=== PATIENT | female | born 1980 ===

== ENCOUNTER 2021-04-07 08:29 | Outpatient (REF) | payer OTHER, SELFPAY ==
[2021-04-07 09:39] LABS: MANUAL DIFF FLAG NO
[2021-04-07 09:55] LABS: Basophils Percent Auto 0.4 % (0-2); Eosinophils Absolute Auto 0.1 X10*3/uL (0.0-0.4); Eosinophils Percent Auto 1.5 % (0-4); Hematocrit 36.2 % (37-47); Hemoglobin 12.2 g/dl (12.0-16.0); Imm Gran Abs Auto 0.02 X10*3/uL (0.00-0.03); Imm Gran Pct Auto 0.4 % (0.0-0.4); Lymphocytes Absolute Auto 1.7 X10*3/uL (1.2-4.9); Lymphocytes Percent Auto 31.6 % (20-40); Mean Corpuscular HGB Conc 33.7 g/dl (31.0-35.0); Mean Corpuscular Hemoglobin 30.3 pg (27.0-33.0); Mean Platelet Volume 10.2 fL (9.4-12.3); Monocytes Absolute Auto 0.7 X10*3/uL (0.1-1.2); Monocytes Percent Auto 12.2 % (2-11); Neutrophils Absolute Auto 2.9 X10*3/uL (2.0-8.3); Neutrophils Percent Auto 53.9 % (45-73); Platelet Count 267 X10*3/uL (160-400); Red Blood Count 4.02 X10*6/uL (4.20-5.50); Red Cell Distribution Width 13.2 % (11.0-16.0); White Blood Count 5.3 X10*3/uL (4.8-10.8)
[2021-04-07 10:22] LABS: Cholesterol 232 mg/dL; HDL Cholesterol 49 mg/dL; LDL Cholesterol Calculated 147 mg/dl; Triglycerides 181 mg/dL
[2021-04-08 04:31] LABS: SARS COV2 IgG Positive (Negative)
[2021-04-11 14:02] LABS: Vitamin D 25-OH, D2 <4 ng/mL; Vitamin D 25-OH, D3 42 ng/mL; Vitamin D 25-OH, Total 42 ng/mL (30-100)
== END 2021-04-07 08:30 | disposition home or self-care (01) ==
LOC: HO.LAB 08:29
PROVIDERS: PCP Internal Medicine; Visit Provider Internal Medicine
DX: Z20.822 Contact with and (suspected) exposure to COVID-19 (principal); E78.5 Hyperlipidemia, unspecified; E55.9 Vitamin D deficiency, unspecified; D64.9 Anemia, unspecified; L65.9 Nonscarring hair loss, unspecified
CPT/HCPCS: 36415; 80061; 82306; 84443; 85025; 86769

== ENCOUNTER → 2021-05-12 09:11 | Outpatient (BNVA) | payer OTHER, SELFPAY | PROVIDERS: PCP Internal Medicine; Visit Provider Advanced Practice Midwife ==

== ENCOUNTER 2021-12-15 08:37 | Outpatient (REF) | payer OTHER, SELFPAY ==
[2021-12-15 09:59] LABS: Alanine Aminotransferase 17 U/L (0-31); Albumin Level 4.2 g/dL (3.5-5.0); Alkaline Phosphatase 51 U/L (39-117); Anion Gap 13 (12-20); Aspartate Amino Transferase 14 U/L (5-31); Bilirubin Total 0.5 mg/dL (0.0-1.0); Blood Urea Nitrogen 14 mg/dL (9-16); Calcium 10.1 mg/dL (8.4-10.2); Carbon Dioxide 26 mmol/L (22-29); Chloride 106 mmol/L (96-108); Cholesterol 200 mg/dL; Estimated Glomerular Filt Rate > 60; Glucose Fasting 88 mg/dL (60-99); HDL Cholesterol 44 mg/dL; LDL Cholesterol Calculated 127 mg/dl; Potassium 4.6 mmol/L (3.3-5.1); Sodium 140 mmol/L (135-145); Total Protein 7.2 g/dL (6.5-8.0); Triglycerides 149 mg/dL
[2021-12-15 10:09] LABS: Rheumatoid Factor < 15.0 IU/mL (<15.0)
[2021-12-15 10:21] LABS: Erythrocyte Sedimentation Rate 18 MM/HR (0-20)
[2021-12-16 15:47] LABS: Cyclic Citrullinated Peptide <16 UNITS
[2021-12-16 22:51] LABS: Anti DNA DS Antibody <1 IU/mL
== END 2021-12-15 08:38 | disposition home or self-care (01) ==
LOC: HO.LAB 08:37
PROVIDERS: PCP Internal Medicine; Visit Provider Internal Medicine
DX: M25.50 Pain in unspecified joint (principal); E11.9 Type 2 diabetes mellitus without complications; E78.5 Hyperlipidemia, unspecified
CPT/HCPCS: 36415; 80053; 80061; 85652; 86200; 86225; 86431

== ENCOUNTER → 2021-12-27 11:19 | Outpatient (REF) | payer OTHER, SELFPAY ==
--- NOTE | 2021-12-27 11:26 | ECG_ITS ---
Test Reason : TACHYCARDIA Blood Pressure : / mmHG Vent. Rate : 071 BPM Atrial Rate : 071 BPM P-R Int : 122 ms QRS Dur : 092 ms QT Int : 408 ms P-R-T Axes : -08 022 018 degrees QTc Int : 443 ms Normal sinus rhythm Normal ECG When compared to the previous EKG of No significant changes seen Referred By: Micaela Rodriges Electronically Signed By:Gaudencio Hand
== END ==
LOC: HO.CARD 11:19
PROVIDERS: PCP Internal Medicine; Visit Provider Internal Medicine
DX: R00.0 Tachycardia, unspecified (principal)
CPT/HCPCS: 93005

== ENCOUNTER → 2022-03-14 10:30 | Outpatient (BNVA) | payer OTHER, SELFPAY | PROVIDERS: PCP Internal Medicine; Visit Provider Internal Medicine Rheumatology | DX: M25.50 Pain in unspecified joint (principal); M79.7 Fibromyalgia; R22.1 Localized swelling, mass and lump, neck | CPT/HCPCS: 99202 ==

== ENCOUNTER 2022-04-08 08:33 | Outpatient (REF) | payer OTHER, SELFPAY ==
[2022-04-08 09:12] LABS: MANUAL DIFF FLAG NO
[2022-04-08 09:46] LABS: Basophils Percent Auto 0.3 % (0-2); Eosinophils Absolute Auto 0.1 X10*3/uL (0.0-0.4); Hematocrit 34.2 % (37.0-47.0); Hemoglobin 11.3 g/dl (12.0-16.0); Imm Gran Abs Auto 0.02 X10*3/uL (0.00-0.03); Imm Gran Pct Auto 0.3 % (0.0-0.4); Lymphocytes Absolute Auto 1.5 X10*3/uL (1.2-4.9); Lymphocytes Percent Auto 25.6 % (20-40); Mean Corpuscular Hemoglobin 29.1 pg (27.0-33.0); Mean Corpuscular Volume 88.1 fL (80.0-98.0); Mean Platelet Volume 9.4 fL (9.4-12.3); Monocytes Absolute Auto 0.5 X10*3/uL (0.1-1.2); Neutrophils Absolute Auto 3.7 x10*3/uL (2.0-8.3); Neutrophils Percent Auto 64.8 % (45-73); Platelet Count 270 X10*3/uL (160-400); Red Blood Count 3.88 X10*6/uL (4.20-5.50); Red Cell Distribution Width 12.4 % (11.0-16.0); White Blood Count 5.8 X10*3/uL (4.8-10.8)
[2022-04-08 10:29] LABS: Alanine Aminotransferase 17 U/L (0-31); Albumin Level 4.2 g/dL (3.5-5.0); Alkaline Phosphatase 50 U/L (39-117); Anion Gap 13 (12-20); Aspartate Amino Transferase 16 U/L (5-31); Bilirubin Total 0.7 mg/dL (0.0-1.0); Blood Urea Nitrogen 12 mg/dL (9-16); C Reactive Protein 0.39 mg/dL (< or = 0.50); Calcium 9.1 mg/dL (8.4-10.2); Carbon Dioxide 23 mmol/L (22-29); Chloride 108 mmol/L (96-108); Cholesterol 208 mg/dL; Estimated Glomerular Filt Rate > 60; Glucose Fasting 105 mg/dL (60-99); HDL Cholesterol 36 mg/dL; LDL Cholesterol Calculated 156 mg/dl; Potassium 4.7 mmol/L (3.3-5.1); Sodium 139 mmol/L (135-145); Total Protein 7.2 g/dL (6.5-8.0); Triglycerides 84 mg/dL
[2022-04-08 10:31] LABS: Erythrocyte Sedimentation Rate 19 MM/HR (0-20)
[2022-04-08 10:40] LABS: Vitamin D 25-OH Total 36.2 ng/mL (>30)
[2022-04-08 11:10] LABS: Creatinine Urine 140.13 mg/dL; Microalbum/Creatinine Ratio Ur 114.1 ug/mg cr
[2022-04-12 08:51] LABS: Anti Nuclear Antibody Screen NEGATIVE (NEGATIVE)
== END 2022-04-08 08:34 | disposition home or self-care (01) ==
LOC: HO.LAB 08:33
PROVIDERS: Absent Provider Internal Medicine; PCP Internal Medicine; Visit Provider Internal Medicine Rheumatology
DX: E11.9 Type 2 diabetes mellitus without complications (principal); E55.9 Vitamin D deficiency, unspecified; E78.5 Hyperlipidemia, unspecified; M25.50 Pain in unspecified joint; M79.7 Fibromyalgia; R22.1 Localized swelling, mass and lump, neck
CPT/HCPCS: 36415; 80053; 80061; 82043; 82306; 84443; 85025; 85652; 86038; 86039; 86140

== ENCOUNTER 2022-04-28 08:21 | Outpatient (REF) | payer OTHER, SELFPAY ==
--- NOTE | ~2022-04-28 | US_ITS ---
EXAMINATION: US THYROID CLINICAL INFORMATION: Localized swelling, mass and lump, neck. COMPARISON: No similar priors. TECHNIQUE: Linear transducer grayscale and color Doppler examination with attention to the region of the thyroid. FINDINGS: SIZE: Measurements of the thyroid lobes and nodules are given in sagittal, anteroposterior and transverse dimensions respectively. Right Thyroid Lobe: 5.1 x 1.2 x 1.6 cm, volume 5.0 mL. Parenchyma: The gland echotexture is homogeneous. Thyroid vascularity is normal. Left Thyroid Lobe: 4.7 x 1.1 x 1.6 cm, volume 4.4 mL. Parenchyma: The gland echotexture is homogeneous. Thyroid vascularity is normal. Isthmus: 0.1 cm in maximum AP dimension. No focal thyroid nodule is seen. NODES: No lymphadenopathy is seen in the tissue surrounding the thyroid gland. US/US thyroid IMPRESSION: Normal sonographic evaluation of the thyroid.
== END 2022-04-28 08:22 | disposition home or self-care (01) ==
LOC: HO.US 08:21
PROVIDERS: PCP Internal Medicine; Visit Provider Internal Medicine Rheumatology
DX: R22.1 Localized swelling, mass and lump, neck (principal)
CPT/HCPCS: 76536

== ENCOUNTER → 2022-07-14 09:55 | Outpatient (BNVA) | payer OTHER, SELFPAY | PROVIDERS: PCP Internal Medicine; Visit Provider Internal Medicine Rheumatology | DX: M79.7 Fibromyalgia (principal); M25.512 Pain in left shoulder | CPT/HCPCS: 99212 ==

== ENCOUNTER 2022-07-25 09:55 | Outpatient (REF) | payer OTHER, SELFPAY ==
--- NOTE | ~2022-07-25 | XR_ITS ---
EXAMINATION: XR SHOULDER, LEFT CLINICAL INFORMATION: Pain COMPARISON: None TECHNIQUE: AP external rotation, Grashey, scapular Y, and axillary views of the left shoulder. FINDINGS: Bone alignment is normal. No fracture or dislocation. Normal joint spaces. Well-corticated soft tissue ossification inferior to the glenohumeral joint. XR/XR shoulder LT min 2V IMPRESSION: Well-corticated soft tissue ossification inferior to the glenohumeral joint.
== END 2022-07-25 09:56 | disposition home or self-care (01) ==
LOC: HO.XRAY 09:55
PROVIDERS: PCP Internal Medicine; Visit Provider Internal Medicine Rheumatology
DX: M25.512 Pain in left shoulder (principal)
CPT/HCPCS: 73030

== ENCOUNTER 2022-08-30 09:00 | Outpatient (RCR) | payer OTHER, SELFPAY ==
--- NOTE | 2022-08-12 09:53 | MHC.PT.EP ---
[facility] [place] Office [place] Office [place] Office [address] [phone] F: [phone] F: [phone] F: [phone] F: [phone] Physical Therapy Plan of Care Date of Evaluation: Date of Surgery: NA Diagnosis: Other shoulder lesions, L shoulder tendonitis of L rotator cuff Assessment: Rosibel is a 42 year old female who is referred to PT for Other shoulder lesions, L shoulder tendonitis of L rotator cuff . She reports of having sudden onset of pain in her L UE about 2 months back. She denies having any trauma or falls. Her symptoms have been about the same. On PT examination she presented with 7/10 pain at rest and 9/10 painwith movements, TTP over L UT and anterior/ posterior joint line, decreased cervical ROM, pain with all shoulder motions, decreased strength of shoulder and scap muscles and altered posture. She is independent with ADLS however has pain with and has to take frequent rest breaks. She also has pain with sleeping. She would benefit from skilled PT to address the aforementioned impairments and improve tolerance to functional activities. Frequency and Duration: The patient will be seen 2/week for 5 weeks Short Term Goals: 1. Pt will have 50% decrease in pain which will enable her to sleep through the night in 2 weeks. 2. Pt will be able to move her shoulder through full plane of motion without pain which will enable her to dress her upper body without restrictions in 3 weeks. 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 Pt will demonstrate an increase in muscle strength by 1 grade and present with centralized symptoms which will enable her to perform IADLS without pain in 5 weeks. 2. Pt will be independent with [facility] for symptom management and maintenance following d/c in 5 weeks. Treatment Plan: Modalities to reduce pain, spasms and effusion. Manual therapy to restore motion and function. Therapeutic exercise to improve strength and flexibility. Neuromuscular re-education for posture and balance. Therapeutic activities to return to functional activities of daily living. Electronically signed by: Mariela Portillo PT DPT Please sign and return to therapist. Thank you for your referral.
== END 2022-10-18 10:49 | disposition home or self-care (01) ==
LOC: HO.PT 09:00
PROVIDERS: Visit Provider Internal Medicine Rheumatology
DX: M75.82 Other shoulder lesions, left shoulder (principal)
CPT/HCPCS: 97110; 97112; 97161

== ENCOUNTER → 2022-12-14 10:43 | Outpatient (BNVA) | payer OTHER, SELFPAY | PROVIDERS: PCP Internal Medicine; Visit Provider Internal Medicine Rheumatology | DX: M25.552 Pain in left hip (principal); M79.7 Fibromyalgia | CPT/HCPCS: 99212 ==

== ENCOUNTER 2022-12-23 09:23 | Outpatient (REF) | payer OTHER, SELFPAY ==
--- NOTE | ~2022-12-23 | XR_ITS ---
EXAMINATION: XR HIP, LEFT CLINICAL INFORMATION: Pain. COMPARISON: None available. TECHNIQUE: AP and frog-leg lateral views of the left hip. FINDINGS: Bones and soft tissues are normal. No fracture. Alignment is anatomic. Hip joint space is maintained. XR/XR hip LT min 2V IMPRESSION: Normal left hip.
== END 2022-12-23 09:24 | disposition home or self-care (01) ==
LOC: HO.XRAY 09:23
PROVIDERS: PCP Internal Medicine; Visit Provider Internal Medicine Rheumatology
DX: M25.552 Pain in left hip (principal)
CPT/HCPCS: 73502

== ENCOUNTER → 2023-01-12 10:20 | Outpatient (BNVA) | payer OTHER, SELFPAY | PROVIDERS: PCP Internal Medicine; Visit Provider Orthopaedic Surgery | DX: M25.552 Pain in left hip (principal) | CPT/HCPCS: 99202 ==

== ENCOUNTER 2023-05-18 07:51 | Outpatient (REF) | payer OTHER, SELFPAY ==
--- NOTE | ~2023-05-18 | MM_ITS ---
EXAMINATION: MM SCREENING DIGITAL BREAST TOMOSYNTHESIS, BILATERAL CLINICAL INFORMATION: Screening. Asymptomatic. COMPARISON: Mammography: 04/06/2018. TECHNIQUE: Digital breast tomosynthesis is performed in both the craniocaudal and mediolateral oblique views along with computer-aided detection (CAD). Synthesized 2D images are generated from the tomosynthesis. FINDINGS: There are scattered areas of fibroglandular density (ACR BI-RADS breast composition Category b). There are no suspicious masses, suspicious grouped calcifications, or areas of architectural distortion. The parenchymal pattern is stable from prior exams. MM/MM tomosynthesis screening BI IMPRESSION: No mammographic evidence of malignancy. ASSESSMENT: BI-RADS BI-RADS 1 - Negative RECOMMENDATION: Routine annual mammography screening. 1 year F/U This examination should not preclude the clinical evaluation of a suspicious palpable abnormality. This patient's information was entered into a reminder system with a target due date for their next mammogram.
== END 2023-05-18 07:52 | disposition home or self-care (01) ==
LOC: HO.MAMMO 07:51
PROVIDERS: PCP Internal Medicine; Visit Provider Internal Medicine
DX: Z12.31 Encounter for screening mammogram for malignant neoplasm of breast (principal)
CPT/HCPCS: 77063; 77067

== ENCOUNTER → 2023-05-18 08:15 | Outpatient (BNV) | payer OTHER, SELFPAY | PROVIDERS: PCP Internal Medicine; Visit Provider Radiology Diagnostic Radiology | DX: Z12.31 Encounter for screening mammogram for malignant neoplasm of breast (principal) | CPT/HCPCS: 77063; 77067 ==

== ENCOUNTER 2023-06-01 07:53 | Outpatient (AMB) | payer OTHER, SELFPAY ==
--- NOTE | 2023-06-01 07:56 | MHC.OFFVIS ---
Intake Vital Signs 06/01/23 07:57 Height 5 ft 3 in Weight 151 lb 10.848 oz BMI 26.9 BP 118/80 Blood Pressure Location Lt brachial Position Sitting Pulse 60 Pulse Source Pulse Oximeter Temp 97.4 F Temp Source Skin Pulse Oximetry (%) 98 Oxygen Delivery Method Room Air Intake Visit Reasons: fm Intake Note: Here for fibromyalgia flare. c/o difficulty sleeping due to jose roberto shoulder blade pain and inflammation x 2 months Business Coordinator Required: No Accompanied by: Self / Same As Patient Allergies No Known Allergies [No Known Allergies*] Allergy (Verified 06/01/23 08:00) HPI HPI Comments History of Present Illness Details The patient returns today for evaluation of her fibromyalgia. She also has bipolar disorder. She says she remains on Abilify 10 mg daily, BuSpar 5 mg daily, duloxetine 20 mg daily, ibuprofen 200 q.6 p.r.n., lamotrigine 150 daily and she takes gabapentin 1 or 2 tablets in the evenings. In general her overall pains continue. There has been no joint swelling. More recently she has been bothered by posterior shoulder pain. 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 She does get this discomfort in the posterior shoulder region at night. It does seem to be helped by some ibuprofen. There has been no previous injury, surgery, or injections on the shoulders. She has some blood work pending from her primary doctor occluding CBC and TSH. [facility] Medical History (Updated 06/01/23 @ 08:36 by Jesus Patel MD) Bipolar 1 disorder Depression with anxiety Diabetes mellitus Dyslipidemia Fibromyalgia Hair loss Hand pain Polyarthralgia Polyarthralgia Tachycardia Surgical History History of section History of tubal ligation Family History Father Diabetes Heart disease Mother Diabetes Hypertension Paternal Grandmother No problems noted. 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 Negative for appetite change, weight change, fever, chills, malaise Card Details: Negative chest pain, edema and syncope Resp Details: Negative for SOB, cough and wheezing GI Details: Negative indigestion/heartburn, nausea, abdominal pain, bowel changes, diarrhea, constipation and bloody stool. Neuro Details: Negative for epilepsy, palsy, stroke, changes in speech, tingling and weakness Psych Details: Negative for anxiety, depression and stress Aly/Lymph Details: Negative for excessive bruising or bleeding. Physical Exam Vital Signs: Last Vital Signs Temp 97.4 F 06/01/23 07:57 Pulse 60 06/01/23 07:57 BP 118/80 06/01/23 07:57 Pulse Ox 98 06/01/23 07:57 Oxygen Delivery Method Room Air 06/01/23 07:57 BMI result Body Mass Index 26.9 APPEARANCE: Patient in no acute distress EYES no redness, pupils equal and reactive to light, eyelids normal EXTREMITIES: No edema, no calf tenderness, normal peripheral pulses. NEURO: Oriented and alert x3. No focal weakness. Reflexes symmetric. Gait normal. JOINT EXAM: Cervical Spine:.? Full range of motion without pain; mild posterior cervical muscle tenderness. Thoracic Spine:.? No scoliosis.? No tenderness on palpation. Lumbar Spine:.? Alignment normal.? Mild pain with extremes of range of motion.? No the tenderness. Chest Wall:.? No tenderness, swelling, increased warmth or erythema. Hands:.? Normal pain-free range of motion with slight tenderness across the 2nd through 4th PIP joints without swelling.? Other joints have no tenderness, swelling, increased warmth or erythema. Wrists:.? Normal pain-free range of motion without tenderness, swelling, increased warmth or erythema. Elbows:.? Left: Slight pain with extremes of range of motion.? There seems to be slight lateral the epicondylar tenderness but no tenderness over the joint space.? No swelling.? Right: Normal pain-free range of motion with some slight lateral epicondylar tenderness.? No swelling or tenderness over the joint space. Shoulders:.? Left:? Mild discomfort with abduction at 160 degrees or with extremes of internal or external rotation.? The discomfort is felt posteriorly. That area posteriorly is minimally tender. There is no swelling, abductor weakness or adenopathy.? Right:? Full range of motion with mild discomfort at the extremes of motion.? Again the discomfort is felt posteriorly. No tenderness. No adenopathy, weakness, swelling, increased warmth or erythema. Hips:? Left:? Normal pain-free range of motion. I do not feel any swelling or adenopathy in the groin.? Right:? Full range of motion without pain. Hip bursa:.? Mild trochanteric tenderness. Knees:.?? Normal pain-free range of motion without tenderness, swelling, increased warmth or erythema.? There is no effusion or crepitation Ankles:.? Normal pain-free range of motion without tenderness, swelling, increased warmth or erythema. Feet:.? Normal pain-free range of motion with mild tenderness but no swelling, increased warmth or erythema. Tender points:.mild tenderness to digital palpation at the? trapezius, second rib, lateral epicondyle, knees, greater trochanter area bilaterally. ??? Results Reviewed Results Reviewed: [address] [address] XRay Report Signed Patient: Rosibel Stout MR#: [id number] : 1980 Acct:[id number] Age/Sex: 42 / F ADM Date: 12/23/22 Loc: HO.XRAY Attending Dr: Jesus Patel MD Ordering Physician: Jesus Patel MD Date of Service: 12/23/22 Procedure(s): XR hip LT min 2V Accession Number(s): [id number] cc: Jesus Patel MD~ EXAMINATION: XR HIP, LEFT CLINICAL INFORMATION: Pain. COMPARISON: None available. TECHNIQUE: AP and frog-leg lateral views of the left hip. FINDINGS: Bones and soft tissues are normal. No fracture. Alignment is anatomic. Hip joint space is maintained. XR/XR hip LT min 2V IMPRESSION: Normal left hip. ? Dictated By: Souleymane Martin MD Signed By: <Electronically signed by Souleymane Martin MD [address] [address] XRay Report Signed Patient: Rosibel Stout MR#: [id number] : 1980 Acct:[id number] Age/Sex: 42 / F ADM Date: 07/25/[address]: Jesus Patel MD Ordering Physician: Jesus Patel MD Date of Service: 07/25/22 Procedure(s): XR shoulder LT min 2V Accession Number(s): [id number] cc: Jesus Patel MD~ EXAMINATION: XR SHOULDER, LEFT CLINICAL INFORMATION: Pain? COMPARISON: None? TECHNIQUE: AP external rotation, Grashey, scapular Y, and axillary views of the left shoulder. FINDINGS: Bone alignment is normal. No fracture or dislocation. Normal joint spaces. Well-corticated soft tissue ossification inferior to the glenohumeral joint.? XR/XR shoulder LT min 2V IMPRESSION: Well-corticated soft tissue ossification inferior to the glenohumeral joint. ? Dictated By: Yani Steele MD Assessment & Plan Assessment & Plan (1) Shoulder pain, left: Code(s): M25.512 - Pain in left shoulder (2) Fibromyalgia: Code(s): M79.7 - Fibromyalgia Plan She has this posterior shoulder pain that comes on with extremes of motion and at night. It does not really have impingement symptoms as one might see rotator cuff problems. I suspect still that there is some rotator cuff and or muscle injury posteriorly. I think physical therapy would be recommended but she does not have time for that now. I did go over with her some gentle [id number]-[id number] exercises for the shoulders to do before working and also before sleeping at night. Local application of heat and the ibuprofen are recommended. I did refill her gabapentin. Follow-up in 6 months would be reasonable. Medications: Refilled gabapentin 100 - 200 mg (1 - 2 x 100 mg) PO BEDTIME 60 caps 5RF M79.7 - Fibromyalgia Coding Level of Care Code Est Pt Level 3 (90345) Diagnoses Shoulder pain, left M25.512 Fibromyalgia M79.7
[2023-06-01 07:57] VITALS: BP 118/80; PULSE 60; TEMP 36.3; O2SAT 98; BMI 26.9
== END 2023-06-01 08:28 | disposition home or self-care (01) ==
PROVIDERS: PCP Internal Medicine; Visit Provider Internal Medicine Rheumatology
DX: M25.512 Pain in left shoulder (principal); M79.7 Fibromyalgia
CPT/HCPCS: 99213

== ENCOUNTER → 2023-06-01 07:53 | Outpatient (BNVA) | payer OTHER, SELFPAY | PROVIDERS: Visit Provider Internal Medicine Rheumatology | DX: M79.7 Fibromyalgia (principal); M25.512 Pain in left shoulder; Z79.899 Other long term (current) drug therapy | CPT/HCPCS: 99212 ==

== ENCOUNTER 2023-06-13 09:19 | Outpatient (AMB) | payer OTHER, SELFPAY ==
[2023-06-13 09:20] VITALS: BP 118/86; PULSE 88; O2SAT 99; BMI 26.9
--- NOTE | 2023-06-13 09:20 | A.OFFPC_ITS ---
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 Allergies No Known Allergies [No Known Allergies*] Allergy (Verified 06/13/23 09:31) Medication List - Last Reconciled 06/13/23 by JENNY Santana aripiprazole 10 mg PO DAILY arm brace (Wrist Brace Medium) As directed buspirone 5 mg PO DAILY duloxetine 20 mg PO DAILY gabapentin 100 - 200 mg (1 - 2 x 100 mg) PO BEDTIME hydroxyzine HCl 10 mg PO DAILY PRN ibuprofen 200 mg PO Q6H PRN lamotrigine 150 mg PO DAILY magnesium oxide 250 mg PO DAILY nystatin 1 appl topical DAILY 30 days Tobacco use date assessed: 06/13/23 Dental Screening Dental Screen Date: 06/13/23 Did you have a dental visit in the last 12 months?: Yes Did you have a dental problem in the last 6 months where you did not have access to dental care?: No Was dental information given to patient?: Patient has dentist HPI R ear pain HPI Details Patient is a 43-year-old female who presents today for an office visit due to right ear pain for the past 2 months and neck pain right-sided for the past [address] Watson. Patient reports taking Tylenol with minimal improvement. Denies being recently around sick people. Reports negative COVID test yesterday. She reports right neck pain is worse with movement. Reports hard time chewing food due to neck pain. No shortness of breath or chest pain. Reports chronic decreased hearing in both of her ears will be having hearing test. No fever or chills. Reports that right ear pain is improving. [facility] Medical History Bipolar 1 disorder Depression with anxiety Diabetes mellitus Dyslipidemia Fibromyalgia Hair loss Hand pain Polyarthralgia Polyarthralgia Tachycardia Surgical History History of section History of tubal ligation Family History Father Diabetes Heart disease Mother Diabetes Hypertension Paternal Grandmother No problems noted. 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 How often do you have a drink containing alcohol?: Never Total Score: 0 Score Reviewed/Action Taken: No TAWANDA-7 AMB Questionnaire TAWANDA-7 Date TAAWNDA - 7 assessed: 03/07/23 Source: Developed by Drs. Mainor Lima, Rosa M Robles, Javi Del Real and colleagues, with an educational pernell from [employer]. Review of Systems Const Denies body aches, Denies chills, Denies fever(s) and Denies headache(s) Eyes Denies change in vision ENT Denies dizziness, Reports otalgia, Denies headache(s), Denies nasal discharge, Denies sinus pain and Denies sore throat Card Denies chest pain, Denies edema, Denies lightheadedness and Denies dyspnea Resp Denies cough, Denies dyspnea and Denies wheezing GI Denies abdominal pain Denies dysuria Musc Reports as per HPI and Denies myalgias Skin/Breast Denies rash Neuro Denies dizziness and Denies headache(s) Aller/Immun Denies wheezing Physical exam (Primary Care) Vital Signs: Last Vital Signs Pulse 88 06/13/23 09:20 BP 118/86 06/13/23 09:20 Pulse Ox 99 06/13/23 09:20 Oxygen Delivery Method Room Air 06/13/23 09:20 BMI result Body Mass Index 26.9 Tobacco/Smoking Status: Tobacco use Status Tobacco use date assessed 06/13/23 06/13/23 09:30 Patient Tobacco Use Status Former Tobacco user 09/05/23 09:30 Tobacco use type Cigarette 06/13/23 09:30 e-Cigarette/Vaping Use Never Used 06/13/23 09:30 Thrive Assessment: Date of Thrive Assessment Date Thrive assessed 03/07/23 06/13/23 09:30 Const General: cooperative and no acute distress Orientation/consciousness: patient oriented x3 HENMT Other: Right TM with moderate erythema Left TM normal Head: Yes normocephalic and Yes atraumatic Face and sinus: Yes sinuses nontender Mouth: oropharynx normal and moist mucous membranes Throat: Yes posterior oropharynx normal Eyes General: appearance normal, both eyes and all related structures Neck Neck: Yes normal visual inspection, Yes full ROM and Yes no lymphadenopathy Resp Effort & Inspection: normal respiratory effort and able to speak in complete sentences Auscultation: clear to auscultation bilaterally, no crackles, no rales, no rhonchi and no wheezes Cardio Rate: regular rate Rhythm: regular rhythm Heart sounds: S1 normal heart sound present and S2 normal heart sound present GI Auscultation: normal bowel sounds Back/Spine/Pelvis Cervical Spine: cervical muscular tenderness (Right), pain with cervical ROM and No Cervical spine tenderness Skin General skin exam: no rashes or lesions noted Neuro General: patient oriented x3 Gait exam (Neuro): Normal gait present Extrem General: Yes full ROM and No edema Assessment and Plan Assessment & Plan (1) Right ear pain: Code(s): H92.01 - Otalgia, right ear Plan: Right-sided otitis media. Will treat with Augmentin b.i.d. for 7 days. For pain will provide with ibuprofen 1 tablet every 8 hours p.r.n.. Encouraged heating packs p.r.n.. Follow-up in the office if no improvement after finishing treatment. Patient agreed with the plan. Medications: New amoxicillin-pot clavulanate 875-125 mg 1 tab PO Q12H 14 tabs 0RF H92.01 - Otalgia, right ear ibuprofen 600 mg PO Q8H PRN 15 tabs 0RF pain H92.01 - Otalgia, right ear Coding Level of Care Code Est Pt Level 3 (29960) Diagnoses Right ear pain H92.01
== END 2023-06-13 10:16 | disposition home or self-care (01) ==
PROVIDERS: PCP Internal Medicine; Visit Provider Nurse Practitioner Family
DX: H92.01 Otalgia, right ear (principal)
CPT/HCPCS: 99213

== ENCOUNTER 2023-09-22 08:29 | Outpatient (REF) | payer OTHER, SELFPAY | END 2023-09-22 08:30 | disposition home or self-care (01) | LOC: HO.SH 08:29 | PROVIDERS: Visit Provider Internal Medicine | DX: Z01.118 Encounter for examination of ears and hearing with other abnormal findings (principal); H69.93 Unspecified Eustachian tube disorder, bilateral | CPT/HCPCS: 92557; 92567 ==

== ENCOUNTER 2023-11-23 15:07 | Outpatient (AMB) | payer OTHER, SELFPAY ==
[2023-11-23 15:16] VITALS: BP 118/78; PULSE 88; O2SAT 99; BMI 27.1
--- NOTE | 2023-11-23 15:16 | MHC.PC.OV ---
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 Allergies No Known Allergies [No Known Allergies*] Allergy (Verified 11/23/23 15:26) Medication List - Last Reconciled 11/23/23 by Sixto Ortega PA-C aripiprazole 10 mg PO DAILY arm brace (Wrist Brace Medium) As directed buspirone 5 mg PO DAILY duloxetine 20 mg PO DAILY gabapentin 100 - 200 mg (1 - 2 x 100 mg) PO BEDTIME hydroxyzine HCl 10 mg PO DAILY PRN ibuprofen 600 mg PO Q8H PRN lamotrigine 150 mg PO DAILY magnesium oxide 250 mg PO DAILY nystatin 1 appl topical DAILY 30 days Tobacco use date assessed: 11/23/23 Dental Screening Dental Screen Date: 11/23/23 Did you have a dental visit in the last 12 months?: Yes Did you have a dental problem in the last 6 months where you did not have access to dental care?: No Was dental information given to patient?: Patient has dentist HPI ED f/u visit for chest pain, palpitations HPI Details Patient is a 43-year-old female here today for problem visit. This is the 1st time I am meeting this 43-year-old female with a past medical history significant for bipolar disorder, depression, dyslipidemia, fibromyalgia . She reports she has been experiencing chest pain palpitations as of late. She has not seeked any treatment recently for this as she does not want to go to the ER due to wait times. She does admit this is likely anxiety as she has been experiencing some marital issues recently. [facility] Medical History Fibromyalgia Polyarthralgia Hand pain Tachycardia Dyslipidemia Polyarthralgia Diabetes mellitus Depression with anxiety Bipolar 1 disorder Hair loss Surgical History History of tubal ligation History of section Family History Father Diabetes Heart disease Mother Diabetes Hypertension Paternal Grandmother No problems noted. 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 Current occupational exposures/hazards: No Female Reproductive History Menstrual Age of Menarche: 16 Questionnaire Thrive Questionnaire Date Thrive assessed: 11/23/23 I am a: Patient What is your living situation today?: I have a steady place to live Within the past 12 months, did the food you bought not last and you didn't have the money to get more?: Never true Within the past 12 months, did you worry whether your food would run out before you got money to buy more?: Never true Do you have trouble paying for medicines?: No Do you have trouble getting transportation to medical appointments?: No Do you have trouble paying your heating and electricity bill?: No Do you have trouble taking care of your child, family member or friend?: No Do you have trouble with day-to-day activities such as bathing, preparing meals, shopping, managing finances, etc.?: No Are you currently unemployed and looking for a job?: No Are you interested in more education?: No Please select the resources that you would like help with: None THRIVE Score: 0 AUDIT C Alcohol Use Questionnaire (AUDIT-C) 1. How often do you have a drink containing alcohol?: Never 3. How often do you have six or more drinks on one occasion?: Never Total Score: 0 Score Reviewed/Action Taken: No TAWANDA-7 AMB Questionnaire TAWANDA-7 Date TAWANDA - 7 assessed: 11/23/23 Source: Developed by Drs. Mainor Lima, Rosa M Robles, Javi Del Real and colleagues, with an educational pernell from [employer]. Review of Systems Const Denies headache(s) Eyes Denies loss of vision ENT Denies vertigo, Denies dizziness, Denies headache(s) and Denies sore throat Card Denies chest pain, Reports rapid heart rate, Denies leg edema and Denies lightheadedness Resp Denies cough, Denies hemoptysis and Denies wheezing GI Denies abdominal pain, Denies melena, Denies constipation, Denies diarrhea and Denies vomiting Denies urinary frequency, Denies dysuria and Denies urinary urgency Musc Denies arthralgias, Denies joint swelling, Denies numbness and Denies tingling Neuro Denies Abnormal speech present, Denies behavioral changes, Denies vertigo, Denies dizziness, Denies headache(s), Denies loss of vision, Denies memory loss, Denies numbness and Denies tingling Psych Denies anxiety, Denies behavioral changes, Denies depression, Denies memory loss and Denies panic attacks Aly/Lymph Denies easy bleeding and Denies easy bruising Aller/Immun Denies wheezing Physical exam (Primary Care) Vital Signs: Last Vital Signs Pulse 88 11/23/23 15:16 BP 118/78 11/23/23 15:16 Pulse Ox 99 11/23/23 15:16 Oxygen Delivery Method Room Air 11/23/23 15:16 BMI result Body Mass Index 27.1 Tobacco/Smoking Status: Tobacco use Status Tobacco use date assessed 11/23/23 11/23/23 15:17 Patient Tobacco Use Status Former Tobacco user 11/23/23 15:17 Tobacco use type Cigarette 11/23/23 15:17 e-Cigarette/Vaping Use Never Used 11/23/23 15:17 Thrive Assessment: Date of Thrive Assessment Date Thrive assessed 11/23/23 11/23/23 15:17 Const General: healthy appearing, no acute distress, alert and awake Nutritional Appearance: well nourished Orientation/consciousness: oriented to person, oriented to place and oriented to time HENMT Ears: TM's normal bilaterally General nose exam: Normal nasal mucous membranes and turbinates present Eyes Conjunctivae: conjunctivae normal Sclerae: sclerae normal Pupils: Equal, round and reactive pupils present Neck Neck: Yes no lymphadenopathy and Yes no JVD Thyroid: Thyroid normal Carotids: no bruits Resp Effort & Inspection: normal respiratory effort and not tachypneic Auscultation: no crackles, no rales, no rhonchi and no wheezes Cardio Rate: regular rate Rhythm: regular rhythm Heart sounds: no murmurs and normal S1 and S2 GI Palpation (GI): Soft to palpation, nontender, no hepatomegaly and no splenomegaly Auscultation: normal bowel sounds Skin General skin exam: no rashes or lesions noted and dry skin Neuro General: oriented to person, oriented to place and oriented to time Cranial nerves: Yes Equal, round and reactive pupils present Speech: No Abnormal speech present Gait exam (Neuro): Normal gait present Motor exam (neuro): no tremor noted Extrem Right upper extremity: full ROM Left upper extremity: full ROM Right lower extremity: full ROM; no edema Left lower extremity: full ROM; no edema Psych Mental Status: mental status grossly normal Speech and movement: Normal speech and movement present Affect: normal affect Attitude: cooperative Thought process: Normal thought process present Assessment and Plan Assessment & Plan (1) Heart palpitations: Code(s): R00.2 - Palpitations Plan: Has experiencing heart palpitations as of late. On physical exam today patient is in sinus rhythm. Palpitations likely related to her anxiety though will send for baseline labs including TSH and an EKG. Will supply patient with propanolol 10 mg to use on a p.r.n. basis for heart palpitations. (2) TAWANDA (generalized anxiety disorder): Code(s): F41.1 - Generalized anxiety disorder Plan: As per HPI patient has been dealing with some marital issues and has been experiencing more anxiety. She is expanding she has been experiencing heart palpitations it may be related to her anxiety. Again will send for EKG and baseline labs. Orders: Orders Basic Metabolic Panel 11/23/23 R00.2 - Palpitations TSH reflex Free T4 11/23/23 R00.2 - Palpitations ECG 12 lead EKG 11/23/23 R00.2 - Palpitations Complete Blood Count no Diff 11/23/23 R00.2 - Palpitations Medications: New propranolol 10 mg PO BID 7 days PRN 14 tabs 0RF anxiety F41.8 - Other specified anxiety disorders Coding Level of Care Code Est Pt Level 3 (03684) Diagnoses Heart palpitations R00.2 TAWANDA (generalized anxiety disorder) F41.1
== END 2023-11-23 15:46 | disposition home or self-care (01) ==
PROVIDERS: PCP Internal Medicine; Visit Provider Physician Assistant
DX: R00.2 Palpitations (principal); F41.1 Generalized anxiety disorder
CPT/HCPCS: 99213

== ENCOUNTER → 2023-12-01 10:12 | Outpatient (REF) | payer OTHER, SELFPAY ==
--- NOTE | 2023-12-01 10:27 | ECG_ITS ---
Test Reason : palpitations Blood Pressure : / mmHG Vent. Rate : 070 BPM Atrial Rate : 070 BPM P-R Int : 124 ms QRS Dur : 094 ms QT Int : 416 ms P-R-T Axes : -06 019 007 degrees QTc Int : 449 ms Normal sinus rhythm Normal ECG When compared with ECG of 27-DEC-2021 11:36, No significant change was found Referred By: Sixto Ortega Electronically Signed By:DEBORA RUSSELL MD
[2023-12-01 10:50] LABS: Hematocrit 35.8 % (37.0-47.0); Hemoglobin 11.9 g/dl (12.0-16.0); Mean Corpuscular HGB Conc 33.2 g/dl (31.0-35.0); Mean Corpuscular Hemoglobin 29.2 pg (27.0-33.0); Mean Corpuscular Volume 87.7 fL (80.0-98.0); Mean Platelet Volume 9.9 fL (9.4-12.3); Platelet Count 273 X10*3/uL (160-400); Red Blood Count 4.08 X10*6/uL (4.20-5.50); Red Cell Distribution Width 13.1 % (11.0-16.0); White Blood Count 6.2 X10*3/uL (4.8-10.8)
[2023-12-01 11:23] LABS: Anion Gap 11 (12-20); Blood Urea Nitrogen 11 mg/dL (9-16); Calcium 9.5 mg/dL (8.4-10.2); Carbon Dioxide 24 mmol/L (22-29); Chloride 108 mmol/L (96-108); Estimated Glomerular Filt Rate > 60; Glucose Random 111 mg/dL (60-115); Potassium 4.1 mmol/L (3.3-5.1); Sodium 139 mmol/L (135-145)
[2023-12-01 11:40] LABS: TSH reflex Free T4 1.11 uIU/mL (0.32-4.0)
== END ==
LOC: HO.CARD 10:12
PROVIDERS: Physician Assistant; PCP Internal Medicine; Visit Provider Internal Medicine
DX: R00.2 Palpitations (principal)
CPT/HCPCS: 36415; 80048; 84443; 85027; 93005

== ENCOUNTER → 2023-12-01 10:27 | Outpatient (BNV) | payer OTHER, SELFPAY | PROVIDERS: PCP Internal Medicine; Visit Provider Internal Medicine Cardiovascular Disease | DX: R00.2 Palpitations (principal) | CPT/HCPCS: 93010 ==

== ENCOUNTER 2024-03-20 09:32 | Outpatient (AMB) | payer OTHER, SELFPAY ==
--- NOTE | 2024-03-20 09:42 | MHC.OFFVIS ---
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 Present Allergies No Known Allergies [No Known Allergies*] Allergy (Verified 03/20/24 09:49) Medication List - Last Reconciled 03/20/24 by Stormy Paredes CNM aripiprazole 10 mg PO DAILY arm brace (Wrist Brace Medium) As directed buspirone 5 mg PO DAILY duloxetine 20 mg PO DAILY gabapentin 100 - 200 mg (1 - 2 x 100 mg) PO BEDTIME hydroxyzine HCl 10 mg PO DAILY PRN ibuprofen 600 mg PO Q8H PRN lamotrigine 150 mg PO DAILY magnesium oxide 250 mg PO DAILY nystatin 1 appl topical DAILY 30 days propranolol 10 mg PO BID PRN 7 days Is last menstrual period known: Yes Last menstrual period: 03/02/24 Do you need a note to return to daycare/school/sports/work: No HPI 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 She was referred for history of PCOS she said she was diagnosed with PCOS many years ago she is has very regular periods her last period was last week around the 25th her previous period to that was very very heavy on January 07 and her period before that was sometime mid November. She says sometimes they are very heavy with big clots like the 1 in January but they only last 3 days so she does not think that she really needs to do anything about them. She has had her tubes tied. She manages facial hair with a little machine that trims chin hair. She is bothered also by alopecia she said she was told she is alopecia areata however she never has circles of hair loss it is more thinning in the temples and at the top of her head. (more in pattern with male pattern baldness or thinning consistent with PCOS). She says she was told she would pre diabetes but her chart has labeled diabetes but she has not on any medication for she tries to watch her weight and what she eats and be mindful and she cooks everything with the air fryer, and just has little salads in the evening. She said she did not know the results of any of her labs that she has had done. She does not really have time to do a Pap smear today She would like to schedule it. She does not think she wants to do anything about the periods because they only last 3 days. 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 The fibromyalgia is very challenging she used to work out all the time but is sore all the time now she does her own exercise in-house and she tries to get 9 or 10,000 steps in. She sees Rheumatology next week she already knows that there isn't much to do about it except keep moving and she did not find that the gabapentin did that much so she has not interested in taking it. [facility] Medical History Fibromyalgia Polyarthralgia Hand pain Tachycardia Dyslipidemia Polyarthralgia Diabetes mellitus Depression with anxiety Bipolar 1 disorder Hair loss Surgical History History of tubal ligation History of section Family History Father Diabetes Heart disease Mother Diabetes Hypertension Paternal Grandmother No problems noted. 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 Code(s): E28.2 - Polycystic ovarian syndrome Category: Medical (2) Fibromyalgia: Code(s): M79.7 - Fibromyalgia Category: Medical (3) Screening for cervical cancer: Comment: no hx abnls, las pap neg [address] piper, due for pap... Code(s): Z12.4 - Encounter for screening for malignant neoplasm of cervix Category: Medical (4) Menstrual periods irregular: Comment: Longstanding history of PCOS periods are irregular perhaps Q 6 weeks heavy lasting 3 days. Not interested in a Mirena. Manageable per patient. 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 She was referred for history of PCOS she said she was diagnosed with PCOS many years ago she is has very regular periods her last period was last week around the her previous period to that was very very heavy on January 07 and her period before that was sometime mid November. She says sometimes they are very heavy with big clots like the 1 in January but they only last 3 days so she does not think that she really needs to do anything about them. She has had her tubes tied. She manages facial hair with a little machine that trims chin hair. She is bothered also by alopecia she said she was told she is alopecia areata however she never has circles of hair loss it is more thinning in the temples and at the top of her head. (more in pattern with male pattern baldness or thinning consistent with PCOS). She says she was told she would pre diabetes but her chart has labeled diabetes but she has not on any medication for she tries to watch her weight and what she eats and be mindful and she cooks everything with the air fryer, and just has little salads in the evening. She said she did not know the results of any of her labs that she has had done. She does not really have time to do a Pap smear today She would like to schedule it. She does not think she wants to do anything about the periods because they only last 3 days. 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 The fibromyalgia is very challenging she used to work out all the time but is sore all the time now she does her own exercise in-house and she tries to get 9 or 10,000 steps in. She sees Rheumatology next week she already knows that there isn't much to do about it except keep moving and she did not find that the gabapentin did that much so she has not interested in taking it. We will schedule her commercial sales specialist annual Pap smear. 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 She has already doing the best she can with watching her weight and eating healthy and staying as active as she can both for weight management and for her prediabetes/diabetes which ever is the correct diagnosis of the moment and this is beneficial for the PCOS as well. She has had pelvic ultrasounds before in the past does not feel she is when this moment. We will see her for commercial sales specialist annual with Pap. Discussed that her hair loss pattern does not entire match that of alopecia areata and is more in keeping with the male pattern hair thinning that happens with PCOS. She agrees. Coding Level of Care Code New Pt Level 3 (87710) Diagnoses PCOS (polycystic ovarian syndrome) E28.2 Fibromyalgia M79.7 Screening for cervical cancer Z12.4 Menstrual periods irregular N92.6
[2024-03-20 09:43] VITALS: BP 122/78; BMI 28.0
== END 2024-03-20 10:34 | disposition home or self-care (01) ==
LOC: HO.HWSM 09:32
PROVIDERS: PCP Internal Medicine; Visit Provider Advanced Practice Midwife
DX: E28.2 Polycystic ovarian syndrome (principal); M79.7 Fibromyalgia; N92.6 Irregular menstruation, unspecified
CPT/HCPCS: 99213

== ENCOUNTER → 2024-03-20 09:32 | Outpatient (BNVA) | payer OTHER, SELFPAY | PROVIDERS: PCP Internal Medicine; Visit Provider Advanced Practice Midwife | DX: Z12.4 Encounter for screening for malignant neoplasm of cervix (principal); E28.2 Polycystic ovarian syndrome; N92.6 Irregular menstruation, unspecified; M79.7 Fibromyalgia; Z98.51 Tubal ligation status | CPT/HCPCS: 99212 ==

== ENCOUNTER 2024-03-25 09:26 | Outpatient (AMB) | payer OTHER, SELFPAY ==
[2024-03-25 09:31] VITALS: BP 130/84; PULSE 84; O2SAT 99; BMI 28.5
--- NOTE | 2024-03-25 09:31 | MHC.OFFVIS ---
Vital Signs 03/25/24 09:31 Height 5 ft 3 in Weight 160 lb 14.999 oz BMI 28.5 BP 130/84 Blood Pressure Location Rt brachial Position Sitting Pulse 84 Pulse Source Pulse Oximeter Pulse Oximetry (%) 99 Oxygen Delivery Method Room Air Intake Visit Reasons: FM Intake Note: Patient last seen 06/01/[address] Patel, presents today for follow up. Allergies No Known Allergies [No Known Allergies*] Allergy (Verified 03/25/24 09:33) Medication List - Last Reconciled 03/25/24 by Elroy Thacker MD aripiprazole 10 mg PO DAILY arm brace (Wrist Brace Medium) As directed buspirone 5 mg PO DAILY hydroxyzine HCl 10 mg PO DAILY PRN ibuprofen 600 mg PO Q8H PRN lamotrigine 150 mg PO DAILY magnesium oxide 250 mg PO DAILY nystatin 1 appl topical DAILY 30 days propranolol 10 mg PO BID PRN 7 days HPI Comments Details: 44-year-old female with fibromyalgia returns for follow-up. She states that she continues to have pain in her shoulders, back, usually worse in the morning, stiffness of her knees for a few minutes when standing up after sitting for for some time. Duloxetine was discontinued by her psychiatrist. She states that she takes gabapentin once a week. Most recent history by Dr. Patel 05/2023: The patient returns today for evaluation of her fibromyalgia. She also has bipolar disorder. She says she remains on Abilify 10 mg daily, BuSpar 5 mg daily, duloxetine 20 mg daily, ibuprofen 200 q.6 p.r.n., lamotrigine 150 daily and she takes gabapentin 1 or 2 tablets in the evenings. In general her overall pains continue. There has been no joint swelling. More recently she has been bothered by posterior shoulder pain. 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 She does get this discomfort in the posterior shoulder region at night. It does seem to be helped by some ibuprofen. There has been no previous injury, surgery, or injections on the shoulders. She has some blood work pending from her primary doctor occluding CBC and TSH. [facility] Medical History Fibromyalgia Polyarthralgia Hand pain Tachycardia Dyslipidemia Polyarthralgia Diabetes mellitus Depression with anxiety Bipolar 1 disorder Hair loss Surgical History History of tubal ligation History of section Family History Father Diabetes Heart disease Mother Diabetes Hypertension Paternal Grandmother No problems noted. 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 Current occupational exposures/hazards: No Female Reproductive History Menstrual Age of Menarche: 16 Duration of menses: other Date of last menstrual period: 03/02/24 control method: permanent sterilization Total pregnancies: 5 Full term: 3 History of abnormal pap smear: No (2019 neg,per patient) Review of Systems Const Reports fatigue Musc Reports myalgias, Reports arthralgias and Reports stiffness Endo Reports fatigue Physical Exam Vital Signs: Last Vital Signs Pulse 84 03/25/24 09:31 BP 130/84 03/25/24 09:31 Pulse Ox 99 03/25/24 09:31 Oxygen Delivery Method Room Air 03/25/24 09:31 BMI result Body Mass Index 19620.0 Const General: cooperative, healthy appearing and comfortable Nutritional Appearance: overweight Orientation/consciousness: patient oriented x3 Limitations: no limitations HEENT Head: Yes normocephalic and Yes atraumatic Mouth: moist mucous membranes Resp Effort & Inspection: normal respiratory effort and able to speak in complete sentences Auscultation: clear to auscultation bilaterally Cardio Rate: regular rate Skin General skin exam: no rashes or lesions noted Neuro General: patient oriented x3 Extrem Other: No active synovitis Negative rotator cuff provocative maneuvers bilaterally Negative Speed's test bilaterally Multiple fibromyalgia tender points Assessment & Plan Assessment & Plan (1) Fibromyalgia: Code(s): M79.7 - Fibromyalgia Category: Medical Plan: This is a 44-year-old female who presents for evaluation of fibromyalgia. This is her 1st visit with me. She used to follow-up with Dr. Patel. Discussed management of fibromyalgia with patient. Is a noninflammatory, non-autoimmune central afferent processing disorder leading to a diffuse pain syndrome. Patient follows up regularly with her psychiatrist and psychotherapist. I suggested evaluation by a therapist and/or a psychiatrist. Advised patient to Try to follow sleep hygiene practices. Consider a sleep study to rule out SMITA. Patient would benefit from increased physical activity, Consider low-impact exercises such as walking, swimming, aqua therapy stretching, yoga. Her psychiatrist discontinued her duloxetine and patient states that she takes gabapentin about once a week. Advised patient to stop her gabapentin. No need for further follow-up with Rheumatology at this point Follow-up with other providers Plan I spent 15 minutes reviewing patient's chart, evaluating patient, counseling patient and documenting in the chart Coding Level of Care Code Est Pt Level 3 (57721) Diagnoses Fibromyalgia M79.7
== END 2024-03-25 09:46 | disposition home or self-care (01) ==
PROVIDERS: PCP Internal Medicine; Visit Provider Student in an Organized Health Care Education/Training Program
DX: M79.7 Fibromyalgia (principal)
CPT/HCPCS: 99213

== ENCOUNTER → 2024-03-25 09:26 | Outpatient (BNVA) | payer OTHER, SELFPAY | PROVIDERS: PCP Internal Medicine; Visit Provider Student in an Organized Health Care Education/Training Program | DX: M79.7 Fibromyalgia (principal) | CPT/HCPCS: 99212 ==

== ENCOUNTER 2024-03-25 10:05 | Outpatient (AMB) | payer OTHER, SELFPAY ==
--- NOTE | 2024-03-25 10:08 | A.OFFPC_ITS ---
Vital Signs 03/25/24 10:09 Height 5 ft 3 in Weight 160 lb BMI 28.3 BP 130/86 Blood Pressure Location Lt brachial Position Sitting Pulse 67 Pulse Source Pulse Oximeter Pulse Oximetry (%) 98 Oxygen Delivery Method Room Air Intake Visit Reasons: double ear infection Intake Note: Patient is here to follow up on possible double ear infection, with pain started two days ago. 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: Not Required per policy Accompanied by: Self / Same As Patient Allergies No Known Allergies [No Known Allergies*] Allergy (Verified 03/25/24 10:28) Medication List - Last Reconciled 03/25/24 by Will Cross MD arm brace (Wrist Brace Medium) As directed hydroxyzine HCl 10 mg PO DAILY PRN ibuprofen 600 mg PO Q8H PRN lamotrigine 150 mg PO DAILY naproxen 500 mg PO DAILY propranolol 10 mg PO BID PRN 7 days Tobacco use date assessed: 03/25/24 Dental Screening Dental Screen Date: 11/23/23 HPI double ear infection HPI Details Patient comes in today complaining of increasing pain in both of her ears over the past 2 days States that the symptoms are much worse in her right ear; is concerned that she is coming down with ear infection again and states that this seems to be occurring very often lately She denies any recent fever or sore throat; denies any recent cough/cold symptoms Denies any headaches or dizziness Denies any chest pains, no SOB No nausea/vomiting, no abdominal pain No change in bowel habits noted PFSH Medical History Fibromyalgia Polyarthralgia Hand pain Tachycardia Dyslipidemia Polyarthralgia Diabetes mellitus Depression with anxiety Bipolar 1 disorder Hair loss Surgical History History of tubal ligation History of section Family History Father Diabetes Heart disease Mother Diabetes Hypertension Paternal Grandmother No problems noted. 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 1. Little interest or pleasure in doing things: not at all 2. Feeling down, depressed, or hopeless: not at all 3. Trouble falling or staying asleep, or sleeping too much: not at all 4. Feeling tired or having little energy: not at all 5. Poor appetite or overeating: not at all 6. Feeling bad about yourself - or that you are a failure or have let yourself or your family down: not at all 7. Trouble concentrating on things, such as reading the newspaper or watching television: not at all 8. Moving or speaking so slowly that other people could have noticed. Or the opposite - being so fidgety or restless that you have been moving around a lot more than usual: not at all 9. Thoughts that you would be better off or of hurting yourself in some way: not at all Total score: 0 Depression Screening Interpretation: Negative Depression Screening Done: Yes 96085 - PHQ-9 Billing: Yes Source: Developed by Drs. Mainor Lima, Rosa M Robles, Javi Del Real and colleagues, with an educational pernell from [employer]. Thrive Questionnaire Date Thrive assessed: 11/23/23 TAWANDA-7 AMB Questionnaire TAWANDA-7 Date TAWANDA - 7 assessed: 11/23/23 Source: Developed by Drs. Mainor Lima, Rosa M Robles, Javi Del Real and colleagues, with an educational pernell from [employer]. Review of Systems Const Denies chills, Denies fatigue, Denies fever(s) and Denies headache(s) ENT Denies dysphagia, Denies dizziness, Reports otalgia (bilaterally, worse in the right ear), Denies headache(s), Denies neck pain and Denies sore throat Card Denies chest pain, Denies palpitations and Denies dyspnea Resp Denies cough and Denies dyspnea GI Denies abdominal pain, Denies constipation, Denies dysphagia, Denies heartburn, Denies diarrhea, Denies nausea and Denies vomiting Denies difficulty voiding, Denies nocturia and Denies dysuria Musc Denies neck pain Skin/Breast Denies rash Neuro Denies dizziness and Denies headache(s) Endo Denies fatigue and Denies palpitations Physical exam (Primary Care) Vital Signs: Last Vital Signs Pulse 67 03/25/24 10:09 BP 130/86 03/25/24 10:09 Pulse Ox 98 03/25/24 10:09 Oxygen Delivery Method Room Air 03/25/24 10:09 BMI result Body Mass Index 28.3 Tobacco/Smoking Status: Tobacco use Status Tobacco use date assessed 03/25/24 03/25/24 10:15 Patient Tobacco Use Status Former Tobacco user 03/25/24 10:15 Tobacco use type Cigarette 03/25/24 10:15 e-Cigarette/Vaping Use Never Used 03/25/24 10:15 PHQ-9: PHQ-9 Score PHQ-9: Total score 0 03/25/24 10:15 Depression Screening Interpretation: Negative Thrive Assessment: Date of Thrive Assessment Date Thrive assessed 11/23/23 03/25/24 10:15 Const General: no acute distress and alert HENMT Ears: TM normal on the left, EAC's normal and TM abnormal bulging on the right and with fluid behind the TM on the right Throat: Yes posterior oropharynx normal and Yes tonsils normal Neck Neck: Yes no lymphadenopathy and Yes supple Thyroid: Thyroid normal Resp Auscultation: clear to auscultation bilaterally, no rales and no wheezes Cardio Rate: regular rate Rhythm: regular rhythm Heart sounds: no murmurs GI Palpation (GI): Soft to palpation and nontender Auscultation: normal bowel sounds Skin Rashes: no rashes Extrem General: Yes no clubbing, cyanosis or edema Assessment and Plan Assessment & Plan (1) Otitis media: Code(s): H66.90 - Otitis media, unspecified, unspecified ear Qualifiers: Otitis media type: unspecified Laterality: right Qualified Code(s): H66.91 - Otitis media, unspecified, right ear Plan: Will start patient empirically on Augmentin 875 mg BID x 10 days Have also instructed patient to try to get some ear plugs that she can while in the shower and when she goes swimming to help keep water from getting into her ears - she is advised that this is most likely the reason she has been getting ear infections frequently lately Plan To return as scheduled in October 2024 for her next annual physical examination with her PCP Medications: New amoxicillin-pot clavulanate 875-125 mg 1 tab PO BID 10 days 20 tabs 0RF Coding Level of Care Code Est Pt Level 3 (66256) Diagnoses Right otitis media, unspecified otitis media type H66.91 Otitis media type: unspecified Laterality: right
[2024-03-25 10:09] VITALS: BP 130/86; PULSE 67; O2SAT 98; BMI 28.3
== END 2024-03-25 11:04 | disposition home or self-care (01) ==
LOC: HO.HMGH 10:05
PROVIDERS: PCP Internal Medicine; Visit Provider Internal Medicine
DX: H66.91 Otitis media, unspecified, right ear (principal)
CPT/HCPCS: 99213

== ENCOUNTER 2024-04-30 10:12 | Outpatient (REF) | payer OTHER, SELFPAY ==
[2024-05-01 11:56] LABS: CT PCR NOT DETECTED (Not Detect.); NG PCR NOT DETECTED (Not Detect.)
[2024-05-01 13:29] LABS: Bacterial Vaginosis PCR NEGATIVE (Negative); Candida Group PCR NOT DETECTED (Not Detect); Candida glab krusei PCR NOT DETECTED (Not Detect); Trichomonas vaginalis PCR NOT DETECTED (Not Detect)
[2024-05-02 11:13] LABS: HPV mRNA E6/E7 Not Detected (Not Detected)
== END 2024-04-30 10:13 | disposition home or self-care (01) ==
LOC: HO.LAB 10:12
PROVIDERS: PCP Internal Medicine; Visit Provider Advanced Practice Midwife
DX: Z01.419 Encounter for gynecological examination (general) (routine) without abnormal findings (principal); N89.8 Other specified noninflammatory disorders of vagina; N92.6 Irregular menstruation, unspecified; M79.7 Fibromyalgia; E28.2 Polycystic ovarian syndrome; Z98.891 History of uterine scar from previous surgery; Z98.51 Tubal ligation status; Z20.2 Contact with and (suspected) exposure to infections with a predominantly sexual mode of transmission
CPT/HCPCS: 0352U; 36415; 87491; 87591; 87624; 88175; 99396

== ENCOUNTER 2024-04-30 10:12 | Outpatient (AMB) | payer OTHER, SELFPAY ==
[2024-04-30 10:24] VITALS: BP 142/80; BMI 28.0
--- NOTE | 2024-04-30 10:24 | MHC.OFFVIS ---
Vital Signs 04/30/24 10:24 Height 5 ft 3 in Weight 158 lb BMI 28.0 BP 142/80 H Intake Visit Reasons: OBGYN Information Interpreted: clinical only Amusement Or Recreation Card Checker: Amusement Or Recreation Card Checker Present Allergies No Known Allergies [No Known Allergies*] Allergy (Verified 04/30/24 10:25) Medication List - Last Reconciled 04/30/24 by Stormy Paredes CNM arm brace (Wrist Brace Medium) As directed hydroxyzine HCl 10 mg PO DAILY PRN ibuprofen 600 mg PO Q8H PRN lamotrigine 150 mg PO DAILY naproxen 500 mg PO DAILY propranolol 10 mg PO BID PRN 7 days Is last menstrual period known: Yes Last menstrual period: 04/10/24 HPI HPI OBGYN: Details: 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 She recently had her mammogram but she also then got a letter saying she has 1 in May and she thinks it was a mistake she will call them and double check on that she said she was told the mammogram was fine. She sees her primary care provider and she recently had an ear infection and it is okay now. She had 3 C sections and a tubal ligation. When I had very much difficulty finding her cervix during the exam she told me that everyone has told her that who has done her Pap smear. [facility] Medical History (Updated 04/30/24 @ 11:10 by Stormy Paredes CNM) Fibromyalgia Polyarthralgia Hand pain Tachycardia Dyslipidemia Polyarthralgia Diabetes mellitus Depression with anxiety Bipolar 1 disorder Hair loss Surgical History (Updated 04/30/24 @ 11:08 by Stormy Paredes CNM) History of tubal ligation History of section Family History Father Diabetes Heart disease Mother Diabetes Hypertension Paternal Grandmother No problems noted. 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 Current occupational exposures/hazards: No Cognitive needs: No Hearing needs: No Vision needs: No Female Reproductive History Menstrual Age of Menarche: 16 Duration of menses: 3-5 days Date of last menstrual period: 04/10/24 control method: permanent sterilization Total pregnancies: 5 Full term: 3 Date of last pap smear: 11/07/19 (neg.per patient) History of abnormal pap smear: No Physical Exam Vital Signs: Last Vital Signs BP 142/80 H 04/30/24 10:24 BMI result Body Mass Index 28.0 Const General: healthy appearing, comfortable, no acute distress, well developed and alert Nutritional Appearance: average body habitus Orientation/consciousness: patient oriented x3 Limitations: no limitations HEENT Head: Yes normocephalic Neck Neck: Yes normal visual inspection Chest Chest palpation & inspection: normal inspection of the chest Breast/axilla inspection: normal inspection of the breasts and normal inspection of the axillae Breast/axilla palpation: normal palpation of the breasts and normal palpation of the axillae Resp Effort & Inspection: normal respiratory effort GI Inspection: Yes normal to inspection, No Abdominal wall edema and No distended Palpation (GI): Soft to palpation and nontender Other: External exam within normal limits vagina is pink rugated with extremely clear healthy appearing mucus. cervix is extremely extremely hard to find, located very anteriorly, it is nulliparous pink small healthy-appearing, mobile nontender, uterus is small nontender, extremely anterior (most likely secondary to 3 C section scar tissue) adnexa nontender, not enlarged, and good tone with Kegel. General: Yes bladder normal to palpation External Female Exam: normal external appearance and normal appearance of the urethra Speculum Exam - Vagina: normal appearance of the vagina, normal palpation and normal vaginal discharge Speculum Exam - Cervix: normal appearance of the cervix, normal palpation and nontender Bimanual exam- vagina & uterus: normal bimanual exam, normal palpation, uterine size normal, bladder normal to palpation, consistency normal, normal palpation, uterine mobility normal, uterine shape normal, No Cervical tenderness present, non-tender and no cervical motion tenderness Bimanual Exam- Adnexa, other: normal adnexae, no masses, normal and No adnexal tenderness Neuro General: patient oriented x3 Assessment & Plan Assessment & Plan (1) Menstrual periods irregular: Comment: Longstanding history of PCOS periods are irregular perhaps Q 6 weeks heavy lasting 3 days. Not interested in a Mirena. Manageable per patient. Code(s): N92.6 - Irregular menstruation, unspecified Category: Medical (2) PCOS (polycystic ovarian syndrome): Comment: See note longstanding diagnosis patient aware and watching her weight etc. Code(s): E28.2 - Polycystic ovarian syndrome Category: Medical (3) Well woman exam with routine gynecological exam: Code(s): Z01.419 - Encounter for gynecological examination (general) (routine) without abnormal findings Category: Medical (4) Screening for cervical cancer: Comment: no hx abnls, las pap neg [address] piper, due for pap...04/30/24-tiny nulliparous healthy appearing cervix extremely anterior secondary to history of 3 C sections Pap done with some difficulty. Code(s): Z12.4 - Encounter for screening for malignant neoplasm of cervix Category: Medical (5) History of section: Comment: 1998, 2006 & 2007; note her cervix and uterus are extremely anterior most likely secondary to the scar tissue from the 3 C sections. Healthy-appearing but extremely extremely difficult to palpate and visualize in order to do Pap smear. Code(s): Z98.891 - History of uterine scar from previous surgery Category: Surgical (6) History of tubal ligation: Comment: 2007 Code(s): Z98.51 - Tubal ligation status Category: Surgical (7) Fibromyalgia: Comment: Patient managing with healthy diet and exercise Code(s): M79.7 - Fibromyalgia Category: Medical Plan See previous visit in 03/28/2024 for full discussion about her longstanding history of PCOS she is very familiar with it and she is already managing her health as best she can working towards weight loss etc.. -----Discussed in this visit the following: healthy balanced diet, regular and consistent exercise, getting recommended health screens, doing the best she can for her particular health concerns, kegel exercises, pap smear screening and followup recommendations, mammography screening and SBE, normal changes in cycles in her life stage--- Discussed her excellent self-care she is working out she has lost weight she is managing her pre diabetes by eating healthy and losing weight and working out this is also really helping her fibromyalgia she feels so much better she is doing extremely well she is going to check on the notification for another mammogram which she thinks is a mistake and will verify with them she can not get onto her portal so I recommend she ask for assistance with that the next time she is in a place that can offer assistance with it. Her Pap smear was done with some difficulty it is extremely anterior most likely secondary to the scar tissue from 3 C sections holding her uterus very anterior but it appears very very healthy with normal appearing mucus discussed the common findings of Simran and Gardnerella as they are tested along with the other checks infection and they do not need to be treated unless they are symptomatic and she is not symptomatic we will await testing she had no need for other testing we will see her in 1 year. keep up the good work. . Orders: Orders CT NG by PCR Today Z20.2 - Contact with and (suspected) exposure to infections with a predominantly sexual mode of transmission Bacterial Vaginosis Panel Today N89.8 - Other specified noninflammatory disorders of vagina PAP + HPV E6/E7 rfx 18/45 Today Z01.419 - Encounter for gynecological examination (general) (routine) without abnormal findings Coding Level of Care Code Est Pt Prev Care 40-64y(13212) Diagnoses Menstrual periods irregular N92.6 PCOS (polycystic ovarian syndrome) E28.2 Well woman exam with routine gynecological exam Z01.419 Screening for cervical cancer Z12.4 History of section Z98.891 History of tubal ligation Z98.51 Fibromyalgia M79.7
== END 2024-04-30 11:00 | disposition home or self-care (01) ==
LOC: HO.HWSM 10:12
PROVIDERS: PCP Internal Medicine; Visit Provider Advanced Practice Midwife
DX: Z01.419 Encounter for gynecological examination (general) (routine) without abnormal findings (principal); N92.6 Irregular menstruation, unspecified; E28.2 Polycystic ovarian syndrome; Z98.891 History of uterine scar from previous surgery; Z98.51 Tubal ligation status; M79.7 Fibromyalgia
CPT/HCPCS: 99396

== ENCOUNTER 2024-10-31 08:20 | Outpatient (AMB) | payer OTHER, SELFPAY ==
[2024-10-31 08:22] VITALS: BP 122/72; BMI 28.3
--- NOTE | 2024-10-31 08:22 | A.OFFPC_ITS ---
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 Required: Yes Refrigeration Plant Cork Insulator Language: Combination Welder Name: Micaela Rodriges MD Information Interpreted: non-clinical & clinical Accompanied by: Self / Same As Patient Allergies No Known Allergies [No Known Allergies*] Allergy (Verified 10/31/24 08:35) Medication List - Last Reconciled 10/31/24 by Micaela Rodriges MD arm brace (Wrist Brace Medium) As directed hydrochlorothiazide 25 mg PO DAILY 90 days hydroxyzine HCl 10 mg PO DAILY PRN ibuprofen 600 mg PO Q8H PRN lamotrigine 150 mg PO DAILY naproxen 500 mg PO DAILY propranolol 10 mg PO BID PRN 7 days Tobacco use date assessed: 10/31/24 Dental Screening Dental Screen Date: 10/31/24 Did you have a dental visit in the last 12 months?: No Did you have a dental problem in the last 6 months where you did not have access to dental care?: No Was dental information given to patient?: Patient has dentist HPI HPI Comments History of Present Illness Details The patient is a 44-year-old female presenting for her physical exam. She has dizziness that began approximately a year ago. The dizziness is described as disorienting and is sometimes associated with movements like standing or turning the head. The patient reports mild auditory symptoms, primarily in the right ear. She has had consultations with an hospitalist program director who noted slight ear pressure but did not recommend therapy. Additionally, she has a history of Bipolar Disorder managed with Lamotrigine, which was temporarily discontinued due to dizziness but was recently reinstated at a lower dose. The patient is monitored for anxiety and hypertension, prescribed Hydrochlorothiazide but not currently taking it, and advised Hydroxyzine for anxiety. Her medication changes are guided by her psychiatrist. Her paternal history includes heart disease and diabetes, contributing to her risk factors. - Tetanus vaccine administered in 2017, next due in 2027 - Encouragement to have laboratory tests and mammography as routine screenings - Discussion on healthy eating habits re lated to portion control and specific dietary guidance - Smoking cessation achieved; no current alcohol use - Last mammogram done 2022 and I ordered one. - Pap smear done 2023. PFSH Medical History (Updated 10/31/24 @ 08:51 by Micaela Rodriges MD) Fibromyalgia Polyarthralgia Hand pain Tachycardia Dyslipidemia Polyarthralgia Diabetes mellitus Depression with anxiety Bipolar 1 disorder Hair loss Surgical History History of tubal ligation History of section Family History Father Diabetes Heart disease Mother Diabetes Hypertension Paternal Grandmother No problems noted. 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 1. Little interest or pleasure in doing things: not at all 2. Feeling down, depressed, or hopeless: not at all 3. Trouble falling or staying asleep, or sleeping too much: not at all 4. Feeling tired or having little energy: not at all 5. Poor appetite or overeating: not at all 6. Feeling bad about yourself - or that you are a failure or have let yourself or your family down: not at all 7. Trouble concentrating on things, such as reading the newspaper or watching television: not at all 8. Moving or speaking so slowly that other people could have noticed. Or the opposite - being so fidgety or restless that you have been moving around a lot more than usual: not at all 9. Thoughts that you would be better off or of hurting yourself in some way: not at all Total score: 0 Depression Screening Interpretation: Negative Depression Screening Done: Yes 19667 - PHQ-9 Billing: Yes Source: Developed by Roger Huntet B.W. Travis, Javi Del Real and colleagues, with an educational pernell from [employer]. Thrive Questionnaire Date Thrive assessed: 10/31/24 I am a: Patient What is your living situation today?: I have a steady place to live Within the past 12 months, did the food you bought not last and you didn't have the money to get more?: Never true Within the past 12 months, did you worry whether your food would run out before you got money to buy more?: Never true Do you have trouble paying for medicines?: No Do you have trouble getting transportation to medical appointments?: Yes Do you have trouble paying your heating and electricity bill?: I choose not to answer this question Do you have trouble taking care of your child, family member or friend?: No Do you have trouble with day-to-day activities such as bathing, preparing meals, shopping, managing finances, etc.?: No Are you currently unemployed and looking for a job?: Yes Are you interested in more education?: No Please select the resources that you would like help with: None Currently or been in a relationship where the following occur: I choose not to answer THRIVE Score: 1 AUDIT C Alcohol Use Questionnaire (AUDIT-C) 1. How often do you have a drink containing alcohol?: Never Total Score: 0 Score Reviewed/Action Taken: No TAWANDA-7 AMB Questionnaire TAWANDA-7 Date TAWANDA - 7 assessed: 10/31/24 Feeling nervous, anxious, or on edge: 1 = Several days Not being able to stop or control worryin = Not at all Worrying too much about different things: 1 = Several days Trouble relaxin = Not at all Being so restless that it is hard to sit still: 0 = Not at all Becoming easily annoyed or irritable: 1 = Several days Feeling afraid as if something awful might happen: 0 = Not at all Total TAWANDA-7 score (0-4 normal; 5-9 mild; 10-14 moderate; 15-21 severe): 3 Source: Developed by Drs. Mainor Lima, Rosa M Robles, Javi Del Real and colleagues, with an educational pernell from [employer]. TAWANDA-7 Assessment Billing TAWANDA-7 Assessment Tool: TAWANDA-7 Assessment 13061 Review of Systems Const All systems reviewed & are unremarkable except as noted in HPI and below Card Denies chest pain at rest, Denies chest pain with activity, Denies edema, Denies irregular heart rhythm, Denies claudication, Denies dyspnea, Denies dyspnea on exertion, Denies orthopnea, Denies paroxysmal nocturnal dyspnea and Denies slow heart rate Resp Denies cough, Denies dyspnea and Denies dyspnea on exertion Neuro Denies behavioral changes and Denies lack of coordination Psych Denies behavioral changes Physical exam (Primary Care) Vital Signs: Last Vital Signs BP 122/72 10/31/24 08:22 BMI result Body Mass Index 28.3 Tobacco/Smoking Status: Tobacco use Status Tobacco use date assessed 10/31/24 10/31/24 08:32 Patient Tobacco Use Status Former Tobacco user 10/31/24 08:32 Tobacco use type Cigarette 10/31/24 08:32 e-Cigarette/Vaping Use Never Used 10/31/24 08:32 PHQ-9: PHQ-9 Score PHQ-9: Total score 0 10/31/24 08:38 Depression Screening Interpretation: Negative Thrive Assessment: Date of Thrive Assessment Date Thrive assessed 10/31/24 10/31/24 08:32 Currently or been in a relationship where the following occur: I choose not to answer HENME Head: Yes normal to inspection, Yes normocephalic and Yes atraumatic Ears: external ears normal Eyes General: appearance normal, both eyes and all related structures Eyelids: Yes eyelids normal Conjunctivae: conjunctivae normal Neck Neck: Yes normal visual inspection and Yes supple Resp Effort & Inspection: normal respiratory effort Auscultation: clear to auscultation bilaterally Cardio Jugular venous distension: no JVD Rate: regular rate Rhythm: regular rhythm Heart sounds: S1 normal heart sound present and S2 normal heart sound present GI Inspection: Yes normal to inspection Palpation (GI): Soft to palpation and nontender Auscultation: normal bowel sounds Skin General skin exam: no rashes or lesions noted Neuro General: no focal motor deficits Extrem General: Yes full ROM Psych Appearance: grossly normal Office Procedures Flu Questionnaire Does the patient have a severe egg allergy?: No Immunizations Fluarix Triv [id number] (PF) 45 mcg (15 mcg x 3)/0.5 mL IM syringe Performing Provider: Micaela Rodriges MD [place] Documented (not given) by: RAJI Caicedo on 10/31/24 08:52 Reason Not Given: Patient Refused Coding Level of Care Code Est Pt Level 3 (41590) Est Pt Prev Care 40-64y(96354) Diagnoses Physical exam Z00.00 BPPV (benign paroxysmal positional vertigo) H81.10 Bipolar 1 disorder F31.9 Additional Codes PHQ-9 - 02221 - PHQ-9 Billing: Yes ([id number]) TAWANDA-7 Assessment Billing - TAWANDA-7 Assessment Tool: TAWANDA-7 Assessment 60626 ([id number]) Time Spent (min) 33 Assessment & Plan Assessment & Plan (1) Physical exam: Code(s): Z00.00 - Encounter for general adult medical examination without abnormal findings Category: Medical (2) BPPV (benign paroxysmal positional vertigo): Code(s): H81.10 - Benign paroxysmal vertigo, unspecified ear Category: Medical (3) Bipolar 1 disorder: Code(s): F31.9 - Bipolar disorder, unspecified Category: Medical Plan - Continue monitoring and adjusting Lamotrigine dosing as per psychiatric guidance for Bipolar Disorder management - Address potential vertigo/dizziness with possible referral to support therapy for vestibular rehabilitation, as discussed - Reassess elevated microalbumin levels; consider follow-up with Nephrology if persistence is noted - Evaluate hemoglobin and potential underlying anemia affecting dizziness - Continue anxiety management through Hydroxyzine PRN - Encourage lifestyle modifications pertaining to hypertension and diabetes risk factors, considering family history Patient was informed and verbally consented to the use of an ambient scribe for clinic note documentation during this visit. I discussed with the patient the potential diagnosis of vertigo and its management options, including the possibility of vestibular therapy. Risks and benefits of the current medication regimens for Bipolar Disorder were reviewed, emphasizing the importance of adherence and gradual titration as guided by her psychiatrist. The significance of the elevated microalbumin result was explained, which may require follow-up kidney evaluation if it remains elevated. I reaffirmed the importance of maintaining regular health screenings and encouraged continued dietary adjustments to address her hypertension and risk for diabetes. Smoking cessation was acknowledged as a positive lifestyle change, and I offered encouragement to sustain it. Orders: Orders MM tomosynthesis screening BI Today Z12.31 - Encounter for screening mammogram for malignant neoplasm of breast IRON PROFILE Today D64.9 - Anemia, unspecified Vitamin D 25-OH Total Today E55.9 - Vitamin D deficiency, unspecified Lipid Panel Today Z00.00 - Encounter for general adult medical examination without abnormal findings PT Evaluation and Treatment Today H81.10 - Benign paroxysmal vertigo, unspecified ear Complete Blood Count Auto Diff Today D64.9 - Anemia, unspecified Microalbumin, Random (w Creat) Today R80.9 - Proteinuria, unspecified Comprehensive [place]. Panel Fast Today Z00.00 - Encounter for general adult medical examination without abnormal findings Patient Instructions: - Maintain adherence to prescribed psychiatric medications and follow guidance from your psychiatrist - Schedule and complete recommended laboratory tests and mammography - Adhere to dietary portion control as discussed - Report any worsening or new symptoms, particularly dizziness or auditory changes - Follow recommended lifestyle modifications for hypertension and diabetes risk - Continue not smoking, as this is beneficial for your overall health - Return for regular follow-up appointments as advised
== END 2024-10-31 08:49 | disposition home or self-care (01) ==
PROVIDERS: PCP Internal Medicine; Visit Provider Internal Medicine
DX: Z00.00 Encounter for general adult medical examination without abnormal findings (principal); H81.11 Benign paroxysmal vertigo, right ear; F31.9 Bipolar disorder, unspecified

== ENCOUNTER → 2024-10-31 08:20 | Outpatient (BNVA) | payer OTHER, SELFPAY | PROVIDERS: PCP Internal Medicine; Visit Provider Internal Medicine | DX: Z00.00 Encounter for general adult medical examination without abnormal findings (principal); H81.10 Benign paroxysmal vertigo, unspecified ear; F31.9 Bipolar disorder, unspecified; E78.5 Hyperlipidemia, unspecified; E11.9 Type 2 diabetes mellitus without complications | CPT/HCPCS: 96127; 99212; 99396 ==

== ENCOUNTER 2024-11-05 09:31 | Outpatient (REF) | payer OTHER, SELFPAY | END 2024-11-05 09:32 | disposition home or self-care (01) | LOC: HO.MAMMO 09:31 | PROVIDERS: PCP Internal Medicine; Visit Provider Internal Medicine | DX: Z12.31 Encounter for screening mammogram for malignant neoplasm of breast (principal) | CPT/HCPCS: 77063; 77067 ==

== ENCOUNTER → 2024-11-05 09:45 | Outpatient (BNV) | CPT/HCPCS: 77063; 77067 ==

== ENCOUNTER 2025-01-01 13:53 | Outpatient (AMB) | payer OTHER, SELFPAY ==
--- NOTE | 2025-01-01 14:11 | A.OFFPC_ITS ---
Vital Signs 01/01/25 14:13 Height 5 ft 3 in Weight 159 lb 6 oz BMI 28.2 BP 106/68 Blood Pressure Location Lt brachial Position Sitting Pulse 72 Pulse Source Pulse Oximeter Temp 97.1 F Temp Source Temporal Artery Scan Pulse Oximetry (%) 97 Oxygen Delivery Method Room Air Intake Visit Reasons: Tachycardia Intake Note: Patient is here to follow up on Tachycardia. Rock Loader Required: No Integration Assistant: Not Required per policy Accompanied by: Self / Same As Patient Allergies No Known Allergies [No Known Allergies*] Allergy (Verified 01/01/25 14:19) Medication List - Last Reconciled 01/01/25 by Kathie Jimenes PA-C arm brace (Wrist Brace Medium) As directed hydrochlorothiazide 25 mg PO DAILY 90 days hydroxyzine HCl 10 mg PO DAILY PRN ibuprofen 600 mg PO Q8H PRN lamotrigine 150 mg PO DAILY naproxen 500 mg PO DAILY propranolol 10 mg PO BID PRN 7 days Tobacco use date assessed: 01/01/25 Dental Screening Dental Screen Date: 10/31/24 HPI Tachycardia HPI Details 44-year-old female with past medical his tory of BPPV, bipolar disorder, dyslipidemia, fibromyalgia, depression and anxiety, PCOS last seen 10/[address] Watson coming in for acute problem. The patient is a 44-year-old female presenting with cardiac symptoms. She reports experiencing episodes of palpitations and tachycardia, which are of particular concern given her family history. Despite two previous EKG screenings revealing no definitive abnormalities, she feels apprehensive due to the unpredicted nature of these episodes, occurring vigorously and randomly, often at night. The combination of underlying anxiety, fibromyalgia, and polycystic ovary syndrome contributes to persistent inflammation and stress. The patient manages her anxiety primarily with supplements and medications, expressing hesitancy toward regular use of propranolol but understands its as-needed utility. Additionally, she notes that deep breathing exercises offer temporary relief during symptomatic episodes. Her episodes of tachycardia typically lasts several seconds before resolving spontaneously. [facility] Medical History Fibromyalgia Polyarthralgia Hand pain Tachycardia Dyslipidemia Polyarthralgia Diabetes mellitus Depression with anxiety Bipolar 1 disorder Hair loss Surgical History History of tubal ligation History of section Family History Father Diabetes Heart disease Mother Diabetes Hypertension Paternal Grandmother No problems noted. 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 Current occupational exposures/hazards: No Cognitive needs: No Hearing needs: No Vision needs: No Female Reproductive History Menstrual Age of Menarche: 16 Questionnaire Thrive Questionnaire Date Thrive assessed: 10/26/24 I am a: Patient What is your living situation today?: I have a steady place to live Within the past 12 months, did the food you bought not last and you didn't have the money to get more?: Never true Within the past 12 months, did you worry whether your food would run out before you got money to buy more?: Never true Do you have trouble paying for medicines?: No Do you have trouble getting transportation to medical appointments?: Yes Do you have trouble paying your heating and electricity bill?: I choose not to answer this question Do you have trouble taking care of your child, family member or friend?: No Do you have trouble with day-to-day activities such as bathing, preparing meals, shopping, managing finances, etc.?: No Are you currently unemployed and looking for a job?: Yes Are you interested in more education?: No Please select the resources that you would like help with: None Currently or been in a relationship where the following occur: I choose not to answer THRIVE Score: 1 TAWANDA-7 AMB Questionnaire TAWANDA-7 Date TAWANDA - 7 assessed: 10/31/24 Source: Developed by Drs. Mainor Lima, Rosa M Robles, Javi Del Real and colleagues, with an educational pernell from [employer]. Review of Systems Const Denies body aches, Denies chills, Denies fever(s), Denies headache(s) and Denies poor appetite Eyes Reports no additional complaints ENT Denies headache(s) Card Denies chest pain, Denies syncope, Denies edema, Denies irregular heart rhythm, Denies lightheadedness, Reports palpitations and Denies dyspnea Resp Denies cough and Denies dyspnea GI Reports no additional complaints Reports no additional complaints Musc Reports no additional complaints and Denies abnormal gait Skin/Breast Reports system reviewed and no additional complaints, except as documented Neuro Denies abnormal gait, Denies syncope and Denies headache(s) Psych Reports no additional complaints Endo Reports palpitations Physical exam (Primary Care) Vital Signs: Last Vital Signs Temp 97.1 F 01/01/25 14:13 Pulse 72 01/01/25 14:13 BP 106/68 01/01/25 14:13 Pulse Ox 97 01/01/25 14:13 Oxygen Delivery Method Room Air 01/01/25 14:13 BMI result Body Mass Index 28.2 Tobacco/Smoking Status: Tobacco use Status Tobacco use date assessed 01/01/25 01/01/25 14:19 Patient Tobacco Use Status Former Tobacco user 01/01/25 14:19 Tobacco use type Cigarette 01/01/25 14:19 e-Cigarette/Vaping Use Never Used 01/01/25 14:19 Thrive Assessment: Date of Thrive Assessment Date Thrive assessed 10/26/24 01/01/25 14:19 Currently or been in a relationship where the following occur: I choose not to answer Const General: cooperative, healthy appearing, comfortable and no acute distress Orientation/consciousness: patient oriented x3 HENMT Head: Yes normocephalic Ears: hearing grossly normal bilaterally General nose exam: Normal external nose present Eyes General: appearance normal, both eyes and all related structures Conjunctivae: conjunctivae normal Neck Neck: Yes full ROM and Yes no lymphadenopathy Resp Effort & Inspection: normal respiratory effort Auscultation: clear to auscultation bilaterally, no crackles, no rales, no rhonchi and no wheezes Cardio Rate: regular rate Rhythm: regular rhythm Skin General skin exam: no rashes or lesions noted Neuro General: patient oriented x3 Gait exam (Neuro): Normal gait present Extrem General: Yes normal to inspection, Yes full ROM and No edema Psych Affect: normal affect Attitude: cooperative Insight: Good insight present (Psych) Judgement: Good judgement present (Psych) Coding Level of Care Code Est Pt Level 3 (37388) Diagnoses Heart palpitations R00.2 Fibromyalgia M79.7 Assessment & Plan Assessment & Plan (1) Heart palpitations: Code(s): R00.2 - Palpitations Category: Medical Plan: The patient will undergo a repeat Holter monitor test to evaluate cardiac activity during symptomatic episodes, complemented by a cardiology referral for specialized assessment of her palpitations. Propranolol is prescribed on an as- needed basis for acute symptom management, with caution regarding its concurrent use with hydrochlorothiazide. (2) Fibromyalgia: Comment: Patient managing with healthy diet and exercise Code(s): M79.7 - Fibromyalgia Category: Medical Plan: For fibromyalgia-related pain and inflammation, she will continue intermittent use of naproxen and stress management techniques. She was provided guidance to transition to a new disabilities services officer. Plan A follow-up is scheduled in three months to assess the effectiveness of these interventions and adjust the management plan as necessary. This note was constructed using voice recognition software. While every effort has been made to ensure accuracy and math and physics instructor, still areas may have been included sometimes these areas may affect the content or meeting of the given symptoms. Total time spent caring for the patient today was 20 minutes. This includes time spent before the visit reviewing the chart, time spent during the visit, and time spent after the visit and documentation. Patient was informed and verbally consented to the use of an ambient scribe for clinic note documentation during this visit. Orders: Orders ECG 3 day holter monitor Today R00.2 - Palpitations Referrals Cardiology Referral R00.2 - Palpitations Medications: New naproxen 500 mg PO BID PRN 30 tabs 0RF pain Discontinued ibuprofen Discontinued Reason: Patient no longer taking 600 mg PO Q8H PRN 15 tabs 0RF pain H92.01 - Otalgia, right ear
[2025-01-01 14:13] VITALS: BP 106/68; PULSE 72; TEMP 36.2; O2SAT 97; BMI 28.2
== END 2025-01-01 15:02 | disposition home or self-care (01) ==
LOC: HO.HMCH 13:54
PROVIDERS: PCP Internal Medicine
DX: R00.2 Palpitations (principal); M79.7 Fibromyalgia

== ENCOUNTER → 2025-01-01 13:53 | Outpatient (BNVA) | payer OTHER, SELFPAY | PROVIDERS: PCP Internal Medicine | DX: R00.2 Palpitations (principal); M79.7 Fibromyalgia | CPT/HCPCS: 99212 ==

== ENCOUNTER 2025-05-21 13:53 | Outpatient (AMB) | payer OTHER, SELFPAY ==
--- NOTE | 2025-05-21 13:57 | A.OFFVIS_ITS ---
Vital Signs 05/21/25 14:03 Height 5 ft 3 in Weight 159 lb 2.78 oz BMI 28.2 BP 118/80 Blood Pressure Location Lt brachial Position Sitting Pulse 58 Pulse Source Pulse Oximeter Pulse Oximetry (%) 98 Oxygen Delivery Method Room Air Intake Visit Reasons: FM Intake Note: Patient presents for FM follow up. Allergies No Known Allergies (No Known Allergies*) Allergy (Verified 05/21/25 14:01) Medication List - Last Reconciled 05/21/25 by Arlene Simmons MD arm brace (Wrist Brace Medium) As directed hydrochlorothiazide 25 mg PO DAILY 90 days hydroxyzine HCl 10 mg PO DAILY PRN lamotrigine 150 mg PO DAILY naproxen 500 mg PO BID PRN propranolol 10 mg PO BID PRN 7 days HPI Comments Details: Patient is a 45 year old female with HTN, BPPV, PCOS, Depression with anxiety, Bipolar disorder, HLD and fibromyalgia here today for follow up Interval History: Patient last seen 03/25/[address] 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 Current occupational exposures/hazards: No Cognitive needs: No Hearing needs: No Vision needs: No Female Reproductive History Menstrual Age of Menarche: 16 Review of Systems Const Details: Review of Systems Constitutional: Denies fever, chills, weight loss ENT: Denies vision changes, eye pain or eye redness, dental caries, dry mouth GI: Denies nausea, vomiting, diarrhea, abdominal pain, change in BM Pulm: Denies SOB, W[place]NN, hemoptysis, wheezing Cards: Denies chest pain, palpitations Skin: Denies Raynaud's, rash, nail changes, photosensitivity, 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 Well appearing and in no apparent painful distress MSK Hands * Right Hand: Able to make a fist. No swelling or tenderness to palpation of these joints. No deformities noted. * Left Hand: Able to make a fist. No swelling or tenderness to palpation of these joints. No deformities noted. Wrists * Right Wrist: Full ROM. 70 degrees of wrist flexion, 80 degrees of wrist extension. No swelling or TTP * Left Wrist: Full ROM. 70 degrees of wrist flexion, 80 degrees of wrist extension. No swelling or TTP Elbows * Right Elbow: Full ROM. No swelling or TTP. No TTP of the medial and lateral epicondyles * Left Elbow: Full ROM. No swelling or TTP. No TTP of the medial and lateral epicondyles Shoulders * Right shoulder: Full ROM. No swelling noted. TTP of the AC joint, subacromial bursa and posterior shoulder * Left shoulder: Full ROM. No swelling noted. TTP of the AC joint, subacromial bursa and posterior shoulder Hip bursa: No tenderness to palpation bilaterally Knees * Right knee: Full ROM. No swelling noted. No TTP of the knee joint lie * Left knee: Full ROM. No swelling noted. No TTP of the knee joint lie * TTP bilateral pes anserine bursa Ankles * Right ankle: Good ankle dorsiflexion and plantar flexion. No swelling. No TTP of the ankle joint * Left ankle: Good ankle dorsiflexion and plantar flexion. No swelling. No TTP of the ankle joint Feet * Right foot: Negative squeeze test * Left foot: Negative squeeze test Tender points? * Tenderness to palpation of the bilateral trapezius, supraspinatus, anterior costochondral junctions, bilateral suboccipital muscle insertions SKIN No rashes Vital Signs: Last Vital Signs Pulse 58 05/21/25 14:03 BP 118/80 05/21/25 14:03 Pulse Ox 98 05/21/25 14:03 Oxygen Delivery Method Room Air 05/21/25 14:03 BMI result Body Mass Index 28.2 Results Reviewed Results Reviewed: No recent results to review Assessment & Plan Assessment & Plan (1) Fibromyalgia: Comment: Gabapentin - not effective Code(s): M79.7 - Fibromyalgia Category: Medical Plan: #Fibromyalgia Patient is a 45-year-old female with fibromyalgia here today for follow up. Complaining of whole-body pain especially bilateral shoulder pain in the posterior shoulder. Discussed the treatment of fibromyalgia and patient is willing to try different medications to help. We will start with pregabalin and duloxetine Plan - Pregabalin 25mg nightly for 2 weeks then increase to 75mg nightly if tolerated - Duloxetine 30mg daily for 2 weeks then increase to 60mg daily - RTC 4 months Plan I spent 25 minutes reviewing the record, taking a history, examining the patient, discussing the treatment plan, ordering diagnostic work up and documenting in the medical record Medications: New pregabalin 75 mg (3 x 25 mg) PO BEDTIME 270 caps 1RF 90 days .7 - Fibromyalgia duloxetine 60 mg (2 x 30 mg) PO DAILY 180 caps 1RF 90 days .7 - Fibromyalgia Coding Level of Care Code Est Pt Level 3 (65081) Diagnoses Fibromyalgia .7
[2025-05-21 14:03] VITALS: BP 118/80; PULSE 58; O2SAT 98; BMI 28.2
== END 2025-05-21 14:30 | disposition home or self-care (01) ==
LOC: HO.RHES 13:54
PROVIDERS: PCP Internal Medicine; Visit Provider Student in an Organized Health Care Education/Training Program
DX: M79.7 Fibromyalgia (principal)
CPT/HCPCS: 99213

== ENCOUNTER → 2025-05-21 13:53 | Outpatient (BNVA) | payer OTHER, SELFPAY | PROVIDERS: PCP Internal Medicine; Visit Provider Student in an Organized Health Care Education/Training Program | DX: M79.7 Fibromyalgia (principal) | CPT/HCPCS: 99212 ==

== ENCOUNTER 2025-07-01 15:43 | Outpatient (AMB) | payer OTHER, SELFPAY ==
--- NOTE | 2025-07-01 16:11 | A.OFFPC_ITS ---
Vital Signs 07/01/25 16:14 Height 5 ft 3 in Weight 158 lb 6 oz BMI 28.1 BP 112/78 Blood Pressure Location Lt brachial Position Sitting Pulse 83 Pulse Source Pulse Oximeter Temp 97.3 F Temp Source Temporal Artery Scan Pulse Oximetry (%) 97 Oxygen Delivery Method Room Air Intake Visit Reasons: Dizziness out of energy Intake Note: Patient is here to follow up on Dizziness, fatigue. 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 Accompanied by: Self / Same As Patient Allergies No Known Allergies Allergy (Verified 07/01/25 16:22) Medication List - Last Reconciled 07/01/25 by Idris Cervantes MD arm brace (Wrist Brace Medium) As directed duloxetine 30 mg PO DAILY hydrochlorothiazide 25 mg PO DAILY 90 days hydroxyzine HCl 10 mg PO DAILY PRN lamotrigine 150 mg PO DAILY naproxen 500 mg PO BID PRN Tobacco use date assessed: 07/01/25 Dental Screening Dental Screen Date: 10/31/24 HPI HPI Comments History of Present Illness Details The patient is a 45-year-old female presenting with worsening fibromyalgia symptoms and dizziness. The patient reports a history of fibromyalgia, which has been progressively worsening. She experiences significant pain in her hands and knees, which limits her ability to perform daily activities such as cleaning. The pain is described as severe and persistent, affecting her sleep and causing frustration due to her inability to engage in activities she enjoys. The patient also reports episodes of dizziness, which have occurred intermittently and resolved spontaneously in the past. She has recently started taking an iron supplement to address this issue. Her medication regimen includes duloxetine, hydrochlorothiazide, and hydroxyzine, although she does not frequently use hydroxyzine. She has been advised by a specialist to adjust her duloxetine dosage, but experienced elevated blood pressure when increasing the dose. She avoids taking pregabalin due to adverse effects, including feelings of paranoia. The patient maintains a healthy diet, avoiding sugars and red meat, and primarily consumes chicken. She has been advised to eliminate dairy and gluten from her diet to potentially alleviate fibromyalgia symptoms. [facility] Medical History Fibromyalgia Polyarthralgia Hand pain Tachycardia Dyslipidemia Polyarthralgia Diabetes mellitus Depression with anxiety Bipolar 1 disorder Hair loss Surgical History History of tubal ligation History of section Family History Father Diabetes Heart disease Mother Diabetes Hypertension Paternal Grandmother No problems noted. 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 1. Little interest or pleasure in doing things: more than half the days 2. Feeling down, depressed, or hopeless: more than half the days 3. Trouble falling or staying asleep, or sleeping too much: several days 4. Feeling tired or having little energy: several days 5. Poor appetite or overeating: several days 6. Feeling bad about yourself - or that you are a failure or have let yourself or your family down: not at all 7. Trouble concentrating on things, such as reading the newspaper or watching television: several days 8. Moving or speaking so slowly that other people could have noticed. Or the opposite - being so fidgety or restless that you have been moving around a lot more than usual: several days 9. Thoughts that you would be better off or of hurting yourself in some way: not at all Total score: 9 Depression Screening Interpretation: Positive Depression Screening Done: Yes Source: Developed by Drs. Mainor Lima, Rosa M Robles, Javi Del Real and colleagues, with an educational pernell from [employer]. Thrive Questionnaire Date Thrive assessed: 10/26/24 I am a: Patient What is your living situation today?: I have a steady place to live Within the past 12 months, did the food you bought not last and you didn't have the money to get more?: Never true Within the past 12 months, did you worry whether your food would run out before you got money to buy more?: Never true Do you have trouble paying for medicines?: No Do you have trouble getting transportation to medical appointments?: Yes Do you have trouble paying your heating and electricity bill?: I choose not to answer this question Do you have trouble taking care of your child, family member or friend?: No Do you have trouble with day-to-day activities such as bathing, preparing meals, shopping, managing finances, etc.?: No Are you currently unemployed and looking for a job?: Yes Are you interested in more education?: No Please select the resources that you would like help with: None Currently or been in a relationship where the following occur: I choose not to answer THRIVE Score: 1 TAWANDA-7 AMB Questionnaire TAWANDA-7 Date TAWANDA - 7 assessed: 10/31/24 Source: Developed by Drs. Mainor Lima, Rosa M Robles, Javi Del Real and colleagues, with an educational pernell from [employer]. Review of Systems Const Details: Positives besides what was mentioned in HPI are in BOLD Constitutional: No Weight Change, No Fever, No Chills, No Night Sweats, No Fatigue, No Malaise ENT/Mouth: No Hearing Changes, No Ear Pain, No Nasal Congestion, No Sinus Pain, No Hoarseness, No sore throat, No Rhinorrhea, No Swallowing Difficulty Eyes: No Eye Pain, No Swelling, No Redness, No Foreign Body, No Discharge, No Vision Changes Cardiovascular: No Chest Pain, No SOB, No PND, No Dyspnea on Exertion, No Orthopnea, No Claudication, No Edema, No Palpitations Respiratory: No Cough, No Sputum, No Wheezing, No Smoke Exposure, No Dyspnea Gastrointestinal: No Nausea, No Vomiting, No Diarrhea, No Constipation, No Pain, No Heartburn, No Anorexia, No Dysphagia, No Hematochezia, No Melena, No Flatulence, No Jaundice Genitourinary: No Dysmenorrhea, No DUB, No Dyspareunia, No Dysuria, No Urinary Frequency, No Hematuria, No Urinary Incontinence, No Urgency, No Flank Pain, No Urinary Flow Changes, No Hesitancy Musculoskeletal: No Arthralgias, No Myalgias, No Joint Swelling, No Joint Stiffness, No Back Pain, No Neck Pain, No Injury History Skin: No Skin Lesions, No Pruritis, No Hair Changes, No Breast/Skin Changes, No Nipple Discharge Neuro: No Weakness, No Numbness, No Paresthesias, No Loss of Consciousness, No Syncope, No Dizziness, No Headache, No Coordination Changes, No Recent Falls Psych: No Anxiety/Panic, No Depression, No Insomnia, No Personality Changes, No Delusions, No Rumination, No SI/HI/AH/VH, No Social Issues, No Memory Changes, No Violence/Abuse Hx., No Eating Concerns Heme/Lymph: No Bruising, No Bleeding, No Transfusions History, No Lymphadenopathy Endocrine: No Polyuria, No Polydipsia, No Temperature Intolerance Physical exam (Primary Care) Vital Signs: Last Vital Signs Temp 97.3 F 07/01/25 16:14 Pulse 83 07/01/25 16:14 BP 112/78 07/01/25 16:14 Pulse Ox 97 07/01/25 16:14 Oxygen Delivery Method Room Air 07/01/25 16:14 BMI result Body Mass Index 28.1 Tobacco/Smoking Status: Tobacco use Status Tobacco use date assessed 07/01/25 07/01/25 16:24 Patient Tobacco Use Status Former Tobacco user 07/01/25 16:24 Tobacco use type Cigarette 07/01/25 16:24 e-Cigarette/Vaping Use Never Used 07/01/25 16:24 PHQ-9: PHQ-9 Score PHQ-9: Total score 9 07/01/25 16:24 Depression Screening Interpretation: Positive Thrive Assessment: Date of Thrive Assessment Date Thrive assessed 10/26/24 07/01/25 16:24 Currently or been in a relationship where the following occur: I choose not to answer Const Other: Pertinent findings are in BOLD GENERAL APPEARANCE NAD, activity normal for age, well developed/ well nourished, no cyanosis, pallor, or diaphoresis. EYES lids/conjunctiva normal. EARS/NOSE/THROAT Mucous membranes moist, nares normal, lips/teeth normal uvula midline without oral pharyngeal erythema, exudate or swelling TMs normal bilaterally. No lymphangitis/lymphedema. HEAD/NECK normocephalic atraumatic, no facial trauma, neck is supple. RESPIRATORY respiratory effort normal, speaks in full sentences, no tripod position, no accessory muscle use. Lungs clear to auscultation without rhonchi, wheezes, rales CARDIAC Regular rate and rhythm, no edema. ABDOMINAL Soft, ND/NT. No evidence of fluid wave. No pulsatile masses on exam, rebound tenderness, Sen sign or pain over Mcburney's point. MUSCLES/EXTREMITIES No abnormal range of motion, no swelling. SKIN Warm, pink and dry. No rashes, dermatoses, petechiae or lesions. NEUROLOGICAL Speech is clear and appropriate. Normal level of consciousness. Gait and coordination are normal. 5/5 strength in all extremities. PSYCH Normal mood and affect. Judgement/competence is appropriate Coding Level of Care Code Est Pt Level 4 (44269) Diagnoses Weight gain R63.5 Dizziness R42 Fibromyalgia M79.7 Time Spent (min) 20 Assessment & Plan Assessment & Plan (1) Weight gain: Code(s): R63.5 - Abnormal weight gain Category: Medical Plan: TSH. (2) Dizziness: Code(s): R42 - Dizziness and giddiness Category: Medical Plan: Meclizine PRN. Patient will get the blood tests ordered by Dr. Watson. I added A1C and TSH to the panel. (3) Fibromyalgia: Comment: Gabapentin - not effective Code(s): M79.7 - Fibromyalgia Category: Medical Plan: Continue current regimen. Patient not taking Pre-gabalin. Advised on avoiding Dairy, Gluten, red meat and sugars to help with the symptoms. Plan During the visit, I discussed with the patient the importance of dietary modifications, specifically eliminating dairy and gluten, to potentially alleviate her fibromyalgia symptoms. We also talked about the use of meclizine for dizziness and the continuation of iron supplements. We agreed to follow up in one month to assess her progress and make any necessary adjustments to her treatment plan. Orders: Orders Hemoglobin A1c Today R42 - Dizziness and giddiness Medications: New meclizine 12.5 mg PO TID PRN 90 tabs 1RF dizziness 30 days Discontinued pregabalin Discontinued Reason: Patient no longer taking 25 mg PO BEDTIME M79.7 - Fibromyalgia
[2025-07-01 16:14] VITALS: BP 112/78; PULSE 83; TEMP 36.3; O2SAT 97; BMI 28.1
== END 2025-07-01 16:43 | disposition home or self-care (01) ==
LOC: HO.HMCH 15:44
PROVIDERS: PCP Internal Medicine; Visit Provider Internal Medicine
DX: R63.5 Abnormal weight gain (principal); R42 Dizziness and giddiness; M79.7 Fibromyalgia

== ENCOUNTER → 2025-07-01 15:43 | Outpatient (BNVA) | payer OTHER, SELFPAY | PROVIDERS: PCP Internal Medicine; Visit Provider Internal Medicine | DX: R63.5 Abnormal weight gain (principal); R42 Dizziness and giddiness; M79.7 Fibromyalgia | CPT/HCPCS: 99212 ==

== ENCOUNTER 2025-07-04 07:48 | Outpatient (REF) | payer OTHER, SELFPAY ==
[2025-07-04 08:14] LABS: MANUAL DIFF FLAG NO
[2025-07-04 10:01] LABS: Hematocrit 37.5 % (37.0-47.0); Hemoglobin 12.4 g/dl (12.0-16.0); Imm Gran Abs Auto 0.02 X10*3/uL (0.00-0.03); Imm Gran Pct Auto 0.3 % (0.0-0.4); Lymphocytes Absolute Auto 1.7 X10*3/uL (1.2-4.9); Mean Corpuscular HGB Conc 33.1 g/dl (31.0-35.0); Mean Corpuscular Hemoglobin 29.2 pg (27.0-33.0); Mean Corpuscular Volume 88.2 fL (80.0-98.0); NRBC Abs Auto 0.000 X10*3/uL (0.0-0.012); NRBC Pct Auto 0.0 /100WBC (0.0-0.2); Platelet Count 306 X10*3/uL (160-400); Red Blood Count 4.25 X10*6/uL (4.20-5.50); White Blood Count 7.0 X10*3/uL (4.8-10.8)
[2025-07-04 10:07] LABS: Total Hemoglobin (HGBA1C) 3263.6744 umol/L
[2025-07-04 10:25] LABS: Alanine Aminotransferase 28 U/L (0-31); Albumin Level 4.7 g/dL (3.5-5.0); Alkaline Phosphatase 52 U/L (39-117); Anion Gap 10 (12-20); Aspartate Amino Transferase 24 U/L (5-31); Blood Urea Nitrogen 12 mg/dL (9-16); Calcium 9.5 mg/dL (8.4-10.2); Carbon Dioxide 27 mmol/L (22-29); Chloride 107 mmol/L (96-108); Cholesterol 217 mg/dL (<200); Estimated Glomerular Filt Rate > 60; HDL Cholesterol 38 mg/dL (>40); Iron 153 mcg/dL (30-160); Percent Iron Saturation 52 % (15-50); Potassium 4.2 mmol/L (3.3-5.1); Sodium 140 mmol/L (135-145); Total Iron Binding Capacity 296 mcg/dL (228-428); Total Protein 7.7 g/dL (6.5-8.0); Triglycerides 189 mg/dL (<150); Unsaturated Iron Binding 143 ug/dL
[2025-07-04 11:24] LABS: Microalbum/Creatinine Ratio Ur 12.5 ug/mg cr (<30)
== END 2025-07-04 07:49 | disposition home or self-care (01) ==
LOC: HO.LAB 07:48
PROVIDERS: PCP Internal Medicine; Visit Provider Internal Medicine
DX: Z00.00 Encounter for general adult medical examination without abnormal findings (principal); R42 Dizziness and giddiness; E55.9 Vitamin D deficiency, unspecified; D64.9 Anemia, unspecified; R80.9 Proteinuria, unspecified
CPT/HCPCS: 36415; 80053; 80061; 82043; 82306; 82570; 83036; 83540; 85025

== ENCOUNTER 2025-07-14 11:10 | Outpatient (AMB) | payer OTHER, SELFPAY ==
--- NOTE | 2025-07-14 11:21 | MHC.OFFVIS ---
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 She has been getting palpitations for many months. These last for few sec. She feels her heart fluttering for few sec and this improves. She had COVID-19 infection a year ago and since then had body aches and pains and finally was diagnosed with fibromyalgia. She also has generalized anxiety disorder and has been taking medications for that. She occasionally uses hydroxyzine for sleep but has noticed that these palpitations have no linked with hydroxyzine use. She has hypertension and is on hydrochlorothiazide with good blood pressure control. EKGs showing poor R-wave progression. She is denying any chest discomfort or shortness of breath. [facility] Medical History Fibromyalgia Polyarthralgia Hand pain Tachycardia Dyslipidemia Polyarthralgia Diabetes mellitus Depression with anxiety Bipolar 1 disorder Hair loss Surgical History History of tubal ligation History of section Family History Father Diabetes Heart disease Mother Diabetes Hypertension Paternal Grandmother No problems noted. 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 Current occupational exposures/hazards: No Cognitive needs: No Hearing needs: No Vision needs: No Female Reproductive History Menstrual Age of Menarche: 16 Review of Systems Const Denies chills, Denies fatigue, Denies fever(s), Denies frequent falls, Denies weakness, Denies weight gain and Denies weight loss ENT Denies dizziness Card Denies chest pain, Reports rapid heart rate, Denies leg edema, Denies lightheadedness, Reports palpitations, Reports dyspnea, Reports dyspnea on exertion and Reports orthopnea Resp Denies cough, Reports dyspnea and Reports dyspnea on exertion GI Denies bloating and Denies change in bowel habits Musc Denies muscle weakness, Denies numbness and Denies tingling Neuro Denies dizziness, Denies frequent falls, Denies numbness, Denies tingling and Denies weakness Endo Denies fatigue and Reports palpitations Physical Exam Vital Signs: Last Vital Signs Pulse 67 07/14/25 11:23 BP 130/74 07/14/25 11:23 BMI result Body Mass Index 28.0 GENERAL APPEARANCE: in no acute distress, pleasant. NECK: no carotid bruit, no jugular venous distention. SKIN: no suspicious lesions, warm and dry. HEART: no murmurs, regular rate and rhythm. LUNGS: clear to auscultation bilaterally. ABDOMEN: soft, nontender. EXTREMITIES: no edema. PERIPHERAL PULSES: equal. NEUROLOGIC: No gross deficits, AAO X 3 Office Procedures EKG Details: Sinus rhythm 67 beats per minute, normal axis, poor R-wave progression, QTC 435 milliseconds. [id number], Complete Assessment & Plan Assessment & Plan (1) Heart palpitations: Code(s): R00.2 - Palpitations Category: Medical Plan Pleasant 45 year female who is here for palpitations. These are longstanding and she has never had syncope. Also that duration is for few sec. She has significant anxiety disorder and it is possible that the palpitations are linked with anxiety. Having said that I would arrange a 7 day monitor to rule out any arrhythmia and to have an objective assessment of palpitations. We will check echocardiogram to rule out any structural heart issues. Currently no changes in medications required. She should use hydroxyzine with caution as it can cause tachycardia and may lead to palpitations. Follow-up in few months. Thank you for allowing me to participate in the care of your patient. Please feel free to contact me if you have any questions. Orders: Orders CA echo transthoracic complete Today R00.2 - Palpitations ECG 7 day holter monitor Today R00.2 - Palpitations Coding Level of Care Code New Pt Level 4 (11616) Diagnoses Heart palpitations R00.2 CPT Codes EKG - CPT: 75896-[id number], Complete ([id number])
[2025-07-14 11:23] VITALS: BP 130/74; PULSE 67; BMI 28.0
== END 2025-07-14 11:55 | disposition home or self-care (01) ==
LOC: HO.HCS 11:11
PROVIDERS: PCP Internal Medicine; Visit Provider Internal Medicine Cardiovascular Disease
DX: R00.2 Palpitations (principal)
CPT/HCPCS: 93010; 99204

== ENCOUNTER → 2025-07-14 11:10 | Outpatient (BNVA) | payer OTHER, SELFPAY | PROVIDERS: PCP Internal Medicine; Visit Provider Internal Medicine Cardiovascular Disease | DX: R00.2 Palpitations (principal); R94.31 Abnormal electrocardiogram [ECG] [EKG] | CPT/HCPCS: 93005; 99202 ==

== ENCOUNTER 2025-07-24 12:00 | Outpatient (REF) | payer OTHER, SELFPAY ==
[2025-07-24 12:53] LABS: Resp Syncy Virus RNA Qual PCR NEGATIVE (Negative); SARS COV2 PCR INHOUSE POSITIVE (Negative)
== END 2025-07-24 12:01 | disposition home or self-care (01) ==
LOC: HO.LAB 12:00
PROVIDERS: PCP Internal Medicine; Visit Provider Internal Medicine
DX: Z11.52 Encounter for screening for COVID-19 (principal); R09.89 Other specified symptoms and signs involving the circulatory and respiratory systems
CPT/HCPCS: 87637

== ENCOUNTER → 2025-08-13 09:50 | Outpatient (REF) | payer OTHER, SELFPAY ==
--- NOTE | 2025-08-13 09:53 | CA_ITS ---
Transthoracic Echocardiogram Patient (Last, First, Middle): Rosibel Stout, Gender: Female Date of : 1980 Age: 45 Procedure Date: 08/13/2025 Procedure Type: Transthoracic Echocardiogram Location: OP Height: 160. cm Weight: 68.04 kg BSA: 1.71 m2 Heart Rate: 66 bpm BP: 125 / 80 mmHg Billet Cutter: ERNESTO Ferguson MD: Gaudencio Hand MD Reconciler: Tony Castle MD Symptoms: R00.2 - Palpitations Study Quality: Adequate ECG Rhythm: Sinus Conclusions: - Normal study Findings Left Ventricle Normal left ventricular size, thickness, and systolic function. The visually estimated ejection fraction is between 55-60%. Diastolic function is normal for age. Right Ventricle Normal right ventricular cavity size and systolic function. Atria Both atria are normal in size. There is no evidence of interatrial shunt. Aortic Valve Normal aortic valve structure and function. There is no aortic valve stenosis. There is no aortic valve regurgitation. Mitral Valve Normal mitral valve structure and function. There is trace mitral valve regurgitation. There is no mitral valve stenosis. Pulmonic Valve The pulmonic valve is likely normal. There is trace pulmonic valve regurgitation. Tricuspid Valve Normal tricuspid valve structure. There is trace tricuspid valve regurgitation. The right ventricular systolic pressure is normal. Normal right atrial pressure. There is no evidence of pulmonary hypertension. Great Vessels All visible segments of the aorta are normal in size. The pulmonary artery was not well visualized. Venous The inferior vena cava is normal in size and collapses greater than 50% with inspiration. Pericardium/Pleural There is no evidence of pericardial effusion. Prior Study Comparison No prior study available for comparison. Measurements 2D Linear Measurements IVSd: 1.00 0.6-0.9/0.6-1.0 cm LVIDd: 4.80 3.9-5.3/4.2-5.9 cm LVIDd Index: 2.81 2.4-3.2/2.2-3.1 cm/m2 LVIDs: 3.10 2.0-3.6 cm LVPWd: 0.74 0.7-1.1 cm LA Diam: 3.60 2.7-3.8/3.0-4.0 cm LAIDs Index: 2.11 1.5-2.3 cm/m2 LV Mass: 176.03 67-162/88-224 g LV Mass Index: 102.94 43-95/49-115 g/m2 LVOT Diam: 1.80 3.0+(-)1.3 cm 2D Systolic Function EF 4C: 60.30 >55% EF 2C: 58.30 >55% EF BiP: 59.00 >55% Mitral Valve MV Pk E: 1.20 MV PK A: 0.79 MV Decel Time: 162.00 E/A: 1.50 E'Lateral: 9.03 E'Medial: 7.51 E/E' Med: 16.00 E/E' Lat: 13.30 PHT: 47.00 MVA PHT: 4.68 Decel [place]: 7.42 Aortic Valve AoV Pk Mitesh: 1.41 AoV Mn Mitesh: 0.99 AoV VTI: 0.32 AoV Pk Grad: 8.00 Aov Mn Grad: 4.00 MAURICIO Cont.VTI: 1.82 LVOT LVOT Pk Mitesh: 1.03 LVOT Mn Mitesh: 0.70 LVOT VTI: 0.23 LVOT Pk Grad: 4.00 LVOT Mn Grad: 2.00 LVOT Diam: 1.80 LVOT Area: 2.54 Diastolic Function MV Pk E: 1.20 MV Pk A: 0.79 E/A: 1.50 E'Medial: 7.51 E/E' Med: 16.00 E' Laterial: 9.03 E/E' Lat: 13.30 Right Ventricle TAPSE (mm): 27.40 TVS' Mitesh: 12.90 Tricuspid Valve TR Pk Mitesh: 2.13 TR Pk Grad: 18.00 RA Press: 3.00 RVSP: 21.00 Great Vessels Aorta Sinus of Valsalva: 2.60 2.0-3.5 cm Ao Asc: 2.90 2.1-3.4 cm Ao Arch: 2.30 Pulmonary Veins Pulm Vein S/D 1.70 Pulmonary Valve PV Pk Mitesh: 0.98 Peak PV Grad: 4.00 Updated in Other Vendor System with Status of Final Tony Castle MD electronically signed on 08/13/2025 2:50:59 PM with status of Final
== END ==
LOC: HO.CARD 09:50
PROVIDERS: PCP Internal Medicine; Visit Provider Internal Medicine Cardiovascular Disease
DX: R00.2 Palpitations (principal)
CPT/HCPCS: 93306

== ENCOUNTER → 2025-08-13 09:53 | Outpatient (BNV) | payer OTHER, SELFPAY | PROVIDERS: PCP Internal Medicine; Visit Provider Internal Medicine Cardiovascular Disease | DX: R00.2 Palpitations (principal) | CPT/HCPCS: 93306 ==